=== PATIENT | female | born 1990 | race Caucasian/White ===

== ENCOUNTER 2018-01-04 08:56 | Emergency (ER) | payer OTHER, MEDICAID, SELFPAY ==
[2018-01-04] VITALS (10 sets, daily range): BP systolic 130–166; BP diastolic 60–99; PULSE 81–120; RESP 13–22; TEMP 36.6–37.4; O2SAT 97–100; BMI 20.9
--- NOTE | 2018-01-04 08:59 | ED.SEIZURE ---
HPI - Seizure General Chief Complaint: Seizure Stated Complaint: Seizure Time Seen by Provider: 01/04/18 08:59 Source: patient and family Mode of arrival: ambulatory Limitations: no limitations History of Present Illness HPI Narrative: 27-year-old female with a history of psoriasis, and no history of seizures presents with a witnessed seizure by her boyfriend lasting an estimated 2 min. He states that they were sleeping and he thought she was stretching but realized that she was convulsing. He notes there was convulsions of the upper and lower extremities and she was unresponsive during the episode. Her breathing was irregular and she appeared to be turning red. She did not lose continence of bowel or bladder. She did not bite her tongue. Her boyfriend rolled her on her side. After the episode she was out of it for approximately 5 min. Medics noted that she was postictal on arrival. She uses marijuana and had a beer last night. Denies any other drug use. No head trauma. Related Data Home Medications Medication Instructions Recorded Confirmed No Known Home Medications 01/04/18 01/04/18 Allergies Allergy/AdvReac Type Severity Reaction Status Date / Time No Known Drug Allergies Allergy Verified 01/04/18 09:12 Review of Systems Review of Systems All systems reviewed & are unremarkable except as noted in HPI and below Constitutional Denies chills, Denies fever(s), Denies lethargy and Denies weakness Eyes Denies change in vision, Denies eye discharge, Denies irritation and Denies loss of vision ENT Ears, Nose, Mouth, and Throat: Denies change in voice, Denies neck pain and Denies sore throat Cardiovascular Denies chest pain, Denies irregular heart rhythm, Denies lightheadedness, Denies palpitations, Denies dyspnea, Denies dyspnea on exertion and Denies orthopnea Respiratory Denies cough, Denies dyspnea, Denies dyspnea on exertion and Denies wheezing Gastrointestinal Gastrointestinal: Denies abdominal pain, Denies change in bowel habits, Denies diarrhea, Denies nausea and Denies vomiting Genitourinary Denies hematuria, Denies flank pain, Denies urinary incontinence and Denies urinary urgency Musculoskeletal Denies neck pain Integumentary/Breasts Denies pruritus, Denies erythema, Denies rash and Denies wounds Neurologic Reports confusion, Denies loss of vision, Reports seizure-like activity and Denies weakness Psychiatric Denies anxiety, Reports confusion, Denies depression, Denies homicidal ideation and Denies suicidal ideation Endocrine Denies palpitations Hematologic/Lymphatic Denies easy bruising Allergic/Immunologic Denies wheezing PFSH Family History Father Age: 54 PTSD (post-traumatic stress disorder) Grandmother Early onset Alzheimer's dementia without behavioral disturbance Type 2 diabetes mellitus with complication, unspecified agricultural loan 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 insulin use status Mother Age: 50 Essential hypertension Grandfather Cancer Type 2 diabetes mellitus with complication, unspecified shelter insulin use status Grandmother Adult idiopathic generalized osteoporosis Exam Initial Vital Signs Initial Vital Signs: Vital Signs Temperature 97.9 F 01/04/18 09:12 Pulse Rate 96 H 01/04/18 09:12 Respiratory Rate 16 01/04/18 09:12 Blood Pressure 166/99 H 01/04/18 09:12 Pulse Oximetry 100 01/04/18 09:12 Const General: cooperative and well developed Nutritional Appearance: well nourished Orientation: alert, awake, oriented x3 and not confused HENMT Head: normocephalic and atraumatic Ears: external ears normal and TM's normal bilaterally Nose: external nose normal and No nasal discharge Face and sinus: sinuses nontender, face symmetric, no sinus tenderness and No dry mucous membranes Mouth: oral mucosae normal and moist mucous membranes Teeth and gingiva: dentition normal Throat: tonsils normal and uvula midline Eyes General: appearance normal, both eyes and all related structures Eyelids: eyelids normal Conjunctivae: conjunctivae normal Sclera: sclerae normal Pupils: PERRL EOM: EOM intact bilaterally Neck Neck: normal visual inspection, trachea midline, No lymphadenopathy, No midline deformity and No JVD Lymphatic: No lymphedema Chest Chest: normal inspection of the chest Resp Effort & Inspection: normal respiratory effort, able to speak in complete sentences, no respiratory distress and no use of accessory muscles Auscultation: clear to auscultation bilaterally, no rales, no rhonchi and no wheezes Cardio Rate: regular rate Rhythm: regular rhythm Heart Sounds: no click, no gallops, no murmurs and no rubs Pulses: normal peripheral pulses GI Inspection: non-distended Palpation: soft, no hepatosplenomegaly, No guarding, No pulsatile mass and No tender Auscultation: normal bowel sounds Back/Spine/Pelvis Back: No CVA tenderness Cervical Spine: cervical ROM normal and No pain with cervical ROM Thoracic/Lumbar Spine: thoracic and lumbar spine normal to inspection Skin General: No jaundice and No petechiae Other: Diffuse psoriasis over bilateral arms Neuro General: alert, oriented x3, gait normal and no focal motor deficits Speech: speech normal Extrem General: full ROM, no clubbing, cyanosis or edema, no pedal edema and no calf tenderness Psych Appearance: well kempt Mental Status: mental status grossly normal Attitude: cooperative Thought Content: normal and suicidality Judgment: judgment good Course Orders Ordered: ED Orders 01/04/18 08:45 Complete Blood Count AUTO DIFF Stat Comprehensive Metabolic Panel Stat Ethanol (ETOH) Stat Magnesium Stat Prolactin Stat 01/04/18 09:17 CT head/brain wo con Stat 01/04/18 11:05 Rapid Drug Screen, Urine Stat Urinalysis Sreen (Dip Only) Stat Discontinued Medications Sodium Chloride (Normal Saline 0.9%) 1,000 mls @ 1,000 mls/hr IV BOLUS ONE Stop: 01/04/18 15:15 Last Infusion: 01/04/18 16:32 Dose: 0 mls/hr Admin: 01/04/18 14:17 Dose: 1,000 mls/hr Lorazepam (Ativan) 2 mg IV NOW ONE Stop: 01/04/18 12:13 Last Admin: 01/04/18 11:35 Dose: 2 mg Ondansetron HCl (Zofran) 4 mg IV NOW ONE Stop: 01/04/18 10:13 Last Admin: 01/04/18 10:13 Dose: 4 mg Reevaluation(s) Reevaluation #1: While in the ED I was called from another patient's room to come evaluate the patient. She was having another seizure which from the time I arrived in the room lasted approximately 2 min. It involved both her bilateral upper and lower extremities and involved extension rather than flexion. She was apneic during the event and became cyanotic which was unable to be monitored by pulse ox given her convulsions. She was given Ativan 2 mg IV just as her convulsions were beginning to let up. She was also foaming at the mouth and there is no incontinence noted. When pulse oximeter was placed she was not hypoxic. She had another long episode of being postictal and quite confused and had to be in soft restraints so as not to pull out her IV. I discussed her care with Neurology as documented below. Reevaluation #2: Ambulance arrival to take patient to [facility] as there is no bed available. Time: 17:19 Consultations Consultation #1: Discussed with Dr. Hoffman, [facility] neurology who recommends given her recurrent seizures that she should be admitted to observation, have MRI with and without contrast to look for seizure foci and that she have follow-up with an outpatient neurologist for EEG and other workup. He does not feel that she needs to start antiepileptics at this time, but if she had a 3rd seizure he would recommend Keppra 750 mg b.i.d.. I will discuss with hospitalist Time: 12:19 Consultation #2: Discussed with Dr. Slade who feels patient needs to be more appropriately admitted to a facility with Neurology. [facility] was paged after family requested transfer to [facility]. I spoke with Dr. Paco Little who accepts the admission pending bed availability. Time: 13:34 Vital Signs - 8 hr 01/04/18 11:33 01/04/18 12:04 01/04/18 12:30 Pulse Rate 81 104 H 103 H Respiratory Rate 15 16 19 Blood Pressure [Left Arm] 147/86 H 130/81 H 143/93 H Pulse Oximetry 100 98 97 01/04/18 13:05 01/04/18 14:10 01/04/18 15:40 Pulse Rate 100 H 95 H 117 H Respiratory Rate 18 17 20 Blood Pressure [Left Arm] 144/99 H 133/89 H 140/81 H Pulse Oximetry 97 99 99 01/04/18 16:38 01/04/18 17:13 Pulse Rate 118 H 120 H Respiratory Rate 13 22 Blood Pressure [Left Arm] 140/82 H 132/60 H Pulse Oximetry 97 98 MDM - Seizure Differential Diagnosis Likely intractable seizure disorder, focal seizure, generalized seizure, new onset seizure and epileptic seizure Lab Data Attestation: I reviewed the patient's lab results. Result diagrams: 01/04/18 08:45 01/04/18 08:45 Lab Results 01/04/18 01/04/18 01/04/18 Range/Units 08:45 08:45 11:05 WBC 7.5 (4.5-11.0) X10^3/uL RBC 4.16 (4.0-5.2) X10^6/uL Hgb 13.9 (12.0-16.0) g/dL Hct 40.9 (36-46) % MCV 98.1 (80-100) fL MCH 33.3 (26-34) PG MCHC 33.9 (30-36) % RDW 12.8 (11.6-14.8) % Plt Count 324 (150-400) X10^3/uL Neut % (Auto) 45.5 L (50-75) % Lymph % (Auto) 39.8 (25-40) % [place] % (Auto) 10.4 (3-14) % Eos % (Auto) 3.2 (2-4) % Baso % (Auto) 1.1 (0-2) % Neut # (Auto) 3400 (9468-8859) /uL Sodium 141 (137-145) mmol/L Potassium 3.9 (3.4-5.1) mmol/L Chloride 104 (98-107) mmol/L Carbon Dioxide 17 L (22-32) mmol/L BUN 17 (7-17) mg/dL Creatinine 0.80 (0.52-1.04) mg/dL Estimated GFR > 60.0 (>60) mL/min BUN/Creatinine Ratio 21.3 (6-22) Glucose 121 H (70-100) mg/dL Calcium 9.1 (8.4-10.2) mg/dL Magnesium 2.0 (1.6-2.3) mg/dL Total Bilirubin 0.4 (0.2-1.3) mg/dL AST 28 (14-36) IU/L ALT 18 (9-52) IU/L Alkaline Phosphatase 68 (38-126) U/L Total Protein 8.0 (6.3-8.2) g/dL Albumin 4.9 (3.5-5.0) g/dL Globulin 3.1 (1.7-4.1) g/dL Albumin/Globulin Ratio 1.6 (1.0-2.8) Prolactin 255.1 H (3.0-18.6) ng/mL Urine Color Urine Appearance Urine pH (4.5-8.0) Ur Specific [place] (1.000-1.035) Urine Protein (Negative) Urine Glucose (UA) (Normal) g/dL Urine Ketones (NEGATIVE) Urine Occult Blood (Negative) Urine Nitrate (Negative) Urine Bilirubin (NEGATIVE) Urine Urobilinogen (0.2) E.U./dL Ur Leukocyte Esterase (NEGATIVE) Urine Opiates Screen Negative (Negative) Ur Oxycodone Screen Negative (Negative) Urine Methadone Screen Negative (Negative) Ur Barbiturates Screen Negative (Negative) U Tricyclic Antidepress Negative (Negative) Ur Phencyclidine Scrn Negative (Negative) Ur Amphetamines Screen Negative (Negative) U Methamphetamines Scrn Negative (Negative) Ur MDMA Scrn (Ecstasy) Negative (Negative) U Benzodiazepines Scrn Negative (Negative) Urine Cocaine Screen Negative (Negative) U Marijuana (THC) Screen Positive H (Negative) Ethyl Alcohol < 10 mg/dL 01/04/18 Range/Units 11:05 WBC (4.5-11.0) X10^3/uL RBC (4.0-5.2) X10^6/uL Hgb (12.0-16.0) g/dL Hct (36-46) % MCV (80-100) fL MCH (26-34) PG MCHC (30-36) % RDW (11.6-14.8) % Plt Count (150-400) X10^3/uL Neut % (Auto) (50-75) % Lymph % (Auto) (25-40) % [place] % (Auto) (3-14) % Eos % (Auto) (2-4) % Baso % (Auto) (0-2) % Neut # (Auto) (1849-9204) /uL Sodium (137-145) mmol/L Potassium (3.4-5.1) mmol/L Chloride (98-107) mmol/L Carbon Dioxide (22-32) mmol/L BUN (7-17) mg/dL Creatinine (0.52-1.04) mg/dL Estimated GFR (>60) mL/min BUN/Creatinine Ratio (6-22) Glucose (70-100) mg/dL Calcium (8.4-10.2) mg/dL Magnesium (1.6-2.3) mg/dL Total Bilirubin (0.2-1.3) mg/dL AST (14-36) IU/L ALT (9-52) IU/L Alkaline Phosphatase (38-126) U/L Total Protein (6.3-8.2) g/dL Albumin (3.5-5.0) g/dL Globulin (1.7-4.1) g/dL Albumin/Globulin Ratio (1.0-2.8) Prolactin (3.0-18.6) ng/mL Urine Color Yellow Urine Appearance Cloudy Urine pH 8.0 (4.5-8.0) Ur Specific [place] 1.015 (1.000-1.035) Urine Protein Negative (Negative) Urine Glucose (UA) Negative (Normal) g/dL Urine Ketones Negative (NEGATIVE) Urine Occult Blood Negative (Negative) Urine Nitrate Negative (Negative) Urine Bilirubin Negative (NEGATIVE) Urine Urobilinogen 0.2 (0.2) E.U./dL Ur Leukocyte Esterase Negative (NEGATIVE) Urine Opiates Screen (Negative) Ur Oxycodone Screen (Negative) Urine Methadone Screen (Negative) Ur Barbiturates Screen (Negative) U Tricyclic Antidepress (Negative) Ur Phencyclidine Scrn (Negative) Ur Amphetamines Screen (Negative) U Methamphetamines Scrn (Negative) Ur MDMA Scrn (Ecstasy) (Negative) U Benzodiazepines Scrn (Negative) Urine Cocaine Screen (Negative) U Marijuana (THC) Screen (Negative) Ethyl Alcohol mg/dL Imaging Data CT scan - head: Radiologist's impression: PROCEDURE: CT HEAD/BRAIN WO CON INDICATIONS: new seizure TECHNIQUE: Noncontrast 4.5 mm thick angled axial sections acquired from the foramen magnum to the vertex, with coronal and sagittal reformats. For radiation dose reduction, the following was used: automated exposure control, adjustment of mA and/or kV according to patient size. COMPARISON: None. FINDINGS: Image quality: Excellent. CSF spaces: Basal cisterns are patent. No extra-axial fluid collections. Ventricles are normal in size and shape. Brain: No midline shift. No intracranial masses or hemorrhage. Ware-white matter interface is normal. Skull and face: Calvarium and visualized facial bones are intact, without suspicious lesions. Sinuses: Visualized sinuses and mastoids are clear. IMPRESSION: No acute intracranial disease process. Dictated by: Olivia Esqueda MD, PhD on 01/04/2018 at 9:35 Approved by: Olivia Esqueda MD, PhD on 01/04/2018 at 9:44 MDM Narrative Medical decision making narrative: 27-year-old female with a history of psoriasis presenting with new onset seizures with 2 episodes today. Prolactin is significantly elevated at 255. I discussed her care with Neurology who felt she should be admitted for observation with MRI and possible outpatient EEG. Given that our hospitalist was uncomfortable admitting the patient here without Neurology back up, [facility] was contacted who accepts the patient in transfer. She had no further seizures while in the emergency department waiting for ambulance. She received only Ativan 2 mg after her 2nd seizure. No antiepileptics were started. There was no evidence of drug use other than marijuana, no electrolyte imbalances, no head CT abnormalities, no , and no signs of infection. Discharge Plan Departure Patient Disposition: [facility] Clinical Impression: New onset seizure Interventions: ED Discharge Assessment Last Done: 01/04/18 16:53 Prescriptions: No Action No Known Home Medications RF: 0
--- NOTE | 2018-01-04 09:17 | DI.CT.S_ITS ---
PROCEDURE: CT HEAD/BRAIN WO CON INDICATIONS: new seizure TECHNIQUE: Noncontrast 4.5 mm thick angled axial sections acquired from the foramen magnum to the vertex, with coronal and sagittal reformats. For radiation dose reduction, the following was used: automated exposure control, adjustment of mA and/or kV according to patient size. COMPARISON: None. FINDINGS: Image quality: Excellent. CSF spaces: Basal cisterns are patent. No extra-axial fluid collections. Ventricles are normal in size and shape. Brain: No midline shift. No intracranial masses or hemorrhage. Ware-white matter interface is normal. Skull and face: Calvarium and visualized facial bones are intact, without suspicious lesions. Sinuses: Visualized sinuses and mastoids are clear. IMPRESSION: No acute intracranial disease process. Dictated by: Olivia Esqueda MD, PhD on 01/04/2018 at 9:35 Approved by: Olivia Esqueda MD, PhD on 01/04/2018 at 9:44
[2018-01-04 09:20] LABS: Add Manual Diff / Slide Review NO; Basophils Percent Auto 1.1 % (0-2); Eosinophils Percent Auto 3.2 % (2-4); Hematocrit 40.9 % (36-46); Hemoglobin 13.9 g/dL (12.0-16.0); Lymphocytes Percent Auto 39.8 % (25-40); Mean Corpuscular HGB Conc 33.9 % (30-36); Mean Corpuscular Hemoglobin 33.3 PG (26-34); Mean Corpuscular Volume 98.1 fL (80-100); Monocytes Percent Auto 10.4 % (3-14); Neutrophils Absolute Auto 3400 /uL (3000-5900); Neutrophils Percent Auto 45.5 % (50-75); Platelet Count 324 X10^3/uL (150-400); Red Blood Cell Count 4.16 X10^6/uL (4.0-5.2); Red Cell Distribution Width 12.8 % (11.6-14.8); White Blood Cell Count 7.5 X10^3/uL (4.5-11.0)
[2018-01-04 09:32] LABS: Alanine Aminotransferase 18 IU/L (9-52); Albumin 4.9 g/dL (3.5-5.0); Albumin Globulin Ratio 1.6 (1.0-2.8); Alkaline Phosphatase 68 U/L (38-126); Aspartate Aminotransferase 28 IU/L (14-36); BUN Creatinine Ratio 21.3 (6-22); Bilirubin Total 0.4 mg/dL (0.2-1.3); Blood Urea Nitrogen 17 mg/dL (7-17); Calcium 9.1 mg/dL (8.4-10.2); Carbon Dioxide 17 mmol/L (22-32); Chloride 104 mmol/L (98-107); Estimated Glomerular Filt Rate > 60.0 mL/min (>60); Ethanol (ETOH) < 10 mg/dL; Globulin 3.1 g/dL (1.7-4.1); Glucose 121 mg/dL (70-100); HEMOLYSIS 15 (0-50); Potassium 3.9 mmol/L (3.4-5.1); Sodium 141 mmol/L (137-145)
[2018-01-04 09:48] LABS: Prolactin 255.1 ng/mL (3.0-18.6)
[2018-01-04] MEDS: ONDANSETRON 4 MG/2 ML INJ IV (10:13)
[2018-01-04 11:19] LABS: Appearance Urine UA CLOUDY; Bilirubin Urine UA NEGATIVE (NEGATIVE); Color Urine UA YELLOW; Glucose Urine UA NEGATIVE (Normal); Ketones Urine UA NEGATIVE (NEGATIVE); Leukocyte Esterase Urine UA NEGATIVE (NEGATIVE); Nitrite Urine UA Negative (Negative); Occult Blood Urine UA NEGATIVE (Negative); Protein Urine UA NEGATIVE (Negative); Specific Gravity Urine UA 1.015 (1.000-1.035); Urobilinogen Urine UA 0.2 E.U./dL (0.2)
[2018-01-04 11:23] LABS: Urine Tetrahydrocannabinol Positive (Negative)
[2018-01-04 11:24] LABS: Urine Amphetamines Negative (Negative); Urine Barbiturates Negative (Negative); Urine Benzodiazepines Negative (Negative); Urine Cocaine Negative (Negative); Urine MDMA Negative (Negative); Urine Methadone Negative (Negative); Urine Methamphetamines Negative (Negative); Urine Morphine/Opi cutoff 2000 Negative (Negative); Urine Oxycodone Negative (Negative); Urine Phencyclidine Negative (Negative); Urine Tricyclic Antidepressant Negative (Negative)
[2018-01-04] MEDS: LORazepam 2 MG/ML SYRINGE IV (11:35)
[2018-01-04] MEDS: SODIUM CHLORIDE 0.9% 1,000 ML 1000 ML IV (14:17)
--- NOTE | 2018-01-04 18:33 | PC.NURSE ---
Patient left behind her shoes and I sent message to Aunt(Bree Jade) to parts picker or let pt's mother know
== END 2018-01-04 17:35 | disposition short-term general hospital (02) ==
PROVIDERS: Emergency Provider Emergency Medicine; PCP Psychiatry & Neurology Forensic Psychiatry
DX: R56.9 Unspecified convulsions (principal)
CPT/HCPCS: 70450; 80053; 80305; 80320; 81003; 81025; 83735; 84146; 85025; 93041; 96361; 96374; 96375; 99285; J2060; J2405

== ENCOUNTER → 2018-03-08 13:28 | Outpatient (CLI) | payer OTHER, MEDICAID, SELFPAY ==
--- NOTE | 2018-03-08 | DI.US.S_ITS ---
PROCEDURE: US PELVIC COMPLETE INDICATIONS: LEFT OVARIAN CYST TECHNIQUE: Real-time scanning was performed of the pelvic organs, with image documentation. Additional endovaginal scanning was necessary due to incomplete visualization of the adnexal and endometrial structures by transabdominal scanning. COMPARISON: None. FINDINGS: Transabdominal scanning: No pathologic free abdominal or pelvic fluid. Endovaginal scanning: Uterus: Uterus is normal in size at the 3.3 x 5.0 x 8.1 cm. The endometrium measures 9.0 mm in combined thickness. Ovaries: The right ovary measures 22 x 23 x 45 mm and contains a complex ruptured cyst that measures 18 x 20 x 21 mm. The left ovary appears normal measuring 21 x 29 x 33 mm. IMPRESSION: 1. Normal uterus and left ovary. 2. Right ovary contains a 2 cm ruptured cyst. Dictated by: Sy Wagoner M.D. on 03/08/2018 at 15:01 Approved by: Sy Wagoner M.D. on 03/08/2018 at 15:03
== END ==
PROVIDERS: PCP Psychiatry & Neurology Forensic Psychiatry; Visit Provider Nurse Practitioner
DX: N83.202 Unspecified ovarian cyst, left side (principal)
CPT/HCPCS: 76830; 76856

== ENCOUNTER 2018-08-16 14:46 | Emergency (ER) | payer OTHER, MEDICAID, SELFPAY ==
[2018-08-16] VITALS (28 sets, daily range): BP systolic 121–197; BP diastolic 86–118; PULSE 91–132; RESP 11–30; TEMP 36.7; O2SAT 95–100
--- NOTE | 2018-08-16 14:58 | ED.SEIZURE ---
HPI - Seizure General Chief Complaint: Seizure Stated Complaint: 6 MONTHS PREG/SEIZURE Time Seen by Provider: 08/16/18 14:54 Source: patient Mode of arrival: ambulatory Limitations: no limitations History of Present Illness HPI Narrative: Patient is a at approximately 25 weeks EGA here for evaluation of a seizure this morning. Patient had a 1st seizure the middle of last year. First 1 was outside of the hospital 2nd 1 was in the emergency department. She was transferred to [facility] where she underwent tests . She states she was not started on any medications. Did not have any symptoms until today. She also became during this time. Patient states that she has had high blood pressure in the past has not on any medications now. Today she stated that she started to feel funny and then had a generalized tonic-clonic seizure in vehicle. Witnessed by her . Resolved prior to coming here to the emergency department. Was somewhat confused in triage per nursing report. States she does have some nausea. No loss of fluid. No vaginal bleeding. No cramping. Did not hit her head. Related Data Home Medications Medication Instructions Recorded Confirmed PNV cmb#95-ferrous fumarate-FA 1 tab PO DAILY 08/16/18 08/16/18 [] Allergies Allergy/AdvReac Type Severity Reaction Status Date / Time No Known Drug Allergies Allergy Verified 01/04/18 09:12 Review of Systems Constitutional Denies fever(s), Denies headache(s) and Reports weakness Eyes Denies change in vision ENT Ears, Nose, Mouth, and Throat: Denies vertigo, Denies dizziness, Denies headache(s) and Denies disequilibrium Cardiovascular Denies chest pain and Denies dyspnea Respiratory Denies dyspnea Gastrointestinal Gastrointestinal: Denies abdominal pain, Reports nausea and Denies vomiting Genitourinary Denies dysuria, Denies vaginal discharge and Denies vaginal dryness Musculoskeletal Denies myalgias and Denies arthralgias Integumentary/Breasts Denies rash Neurologic Denies vertigo, Denies dizziness, Denies headache(s), Reports memory loss, Reports seizure-like activity, Denies disequilibrium and Reports weakness Psychiatric Reports memory loss Hematologic/Lymphatic Comments: Not on blood thinners Allergic/Immunologic Denies seasonal rhinorrhea PFSH Medical History Hypertension (Acute) Seizures (Acute) Surgical History No pertinent past surgical history (Acute) Family History Father Age: 54 PTSD (post-traumatic stress disorder) Grandmother Early onset Alzheimer's dementia without behavioral disturbance Type 2 diabetes mellitus with complication, unspecified medical terminologist insulin use status Mother Age: 50 Essential hypertension Grandfather Cancer Type 2 diabetes mellitus with complication, unspecified medical terminologist insulin use status Grandmother Adult idiopathic generalized osteoporosis Social History marital status: lives independently: Yes Exam Initial Vital Signs Initial Vital Signs: Vital Signs Temperature 98.0 F 08/16/18 14:50 Const General: cooperative, healthy appearing, comfortable, well developed, well groomed and No acute distress Resp Effort & Inspection: normal respiratory effort Cardio Rate: tachycardic Rhythm: regular rhythm GI Other: Gravid abdomen Skin General: no rashes or lesions noted Neuro General: alert, awake and oriented x3 Cognition: normal cognition Speech: speech normal Sensory Exam: no sensory deficits noted Extrem General: normal to inspection and capillary refill normal Psych Appearance: grossly normal and well kempt Course Orders Ordered: ED Orders 08/16/18 14:55 Complete Blood Count AUTO DIFF Stat Comprehensive Metabolic Panel Stat Ethanol (ETOH) Stat Lactate Dehydrogenase Stat Lipase Stat Prolactin Stat 08/16/18 15:25 Urine Drug Screen, Rapid Stat Urine Microscopic Stat 08/16/18 15:40 US OB limited Stat 08/16/18 18:09 Magnesium Stat Phosphorous Stat Magnesium Sulfate (Magnesium Sulfate) 20 gm in 500 mls @ 50 mls/hr IV CONT ROCIO Discontinued Medications Sodium Chloride (Normal Saline 0.9%) 1,000 mls @ 1,000 mls/hr IV BOLUS ONE Stop: 08/16/18 16:34 Last Infusion: 08/16/18 16:49 Dose: 0 mls/hr Admin: 08/16/18 15:37 Dose: 1,000 mls/hr Magnesium Sulfate 6 gm/ (Dextrose) 112 mls @ 112 mls/hr IV NOW ONE Stop: 08/16/18 18:10 Labetalol HCl (Trandate) 5 mg IV NOW ONE Stop: 08/16/18 15:16 Last Admin: 08/16/18 15:28 Dose: 5 mg Labetalol HCl (Trandate) 5 mg IV NOW ONE Stop: 08/16/18 17:07 Last Admin: 08/16/18 17:16 Dose: 5 mg Labetalol HCl (Trandate) 5 mg IV NOW ONE Stop: 08/16/18 17:14 Lorazepam (Ativan) 2 mg IV NOW ONE Stop: 08/16/18 17:02 Last Admin: 08/16/18 17:02 Dose: 2 mg Ondansetron HCl (Zofran) 4 mg IV NOW ONE Stop: 08/16/18 15:35 Last Admin: 08/16/18 15:37 Dose: 4 mg Vital Signs - 8 hr 08/16/18 14:50 08/16/18 14:59 08/16/18 15:05 Temperature 98.0 F Pulse Rate 129 H 132 H Respiratory Rate 16 14 Blood Pressure Blood Pressure [Left Arm] 177/117 H 171/106 H Pulse Oximetry 99 98 08/16/18 15:10 08/16/18 15:28 08/16/18 15:43 Temperature Pulse Rate 131 H 125 H 104 H Respiratory Rate 16 11 L Blood Pressure 160/118 H Blood Pressure [Left Arm] 171/106 H 155/108 H Pulse Oximetry 97 97 08/16/18 16:03 08/16/18 16:10 08/16/18 16:35 Temperature Pulse Rate 91 H 102 H Respiratory Rate 19 Blood Pressure 135/99 H Blood Pressure [Left Arm] 151/95 H 160/100 H Pulse Oximetry 100 08/16/18 16:49 08/16/18 17:03 08/16/18 17:10 Temperature Pulse Rate 92 H 120 H 112 H Respiratory Rate 12 26 H 19 Blood Pressure Blood Pressure [Left Arm] 156/92 H 178/98 H 152/88 H Pulse Oximetry 100 98 95 08/16/18 17:16 08/16/18 17:20 08/16/18 17:30 Temperature Pulse Rate 108 H 113 H 115 H Respiratory Rate 18 20 Blood Pressure 156/96 H Blood Pressure [Left Arm] 137/98 H 121/86 Pulse Oximetry 99 99 MDM - Seizure Medical Records Attestation: I reviewed the patient's medical records. Lab Data Attestation: I reviewed the patient's lab results. Result diagrams: 08/16/18 14:55 08/16/18 14:55 Lab Results 08/16/18 08/16/18 08/16/18 Range/Units 14:55 14:55 14:55 WBC 16.4 H (4.5-11.0) X10^3/uL RBC 3.77 L (4.0-5.2) X10^6/uL Hgb 12.7 (12.0-16.0) g/dL Hct 36.8 (36-46) % MCV 97.5 (80-100) fL MCH 33.6 (26-34) PG MCHC 34.5 (30-36) % RDW 13.3 (11.6-14.8) % Plt Count 331 (150-400) X10^3/uL Neut % (Auto) 73.1 (50-75) % Lymph % (Auto) 17.8 L (25-40) % [place] % (Auto) 7.3 (3-14) % Eos % (Auto) 1.2 L (2-4) % Baso % (Auto) 0.6 (0-2) % Neut # (Auto) 70752 H (7553-4294) /uL Lymph # (Auto) 2900 (6823-8889) /uL [place] # (Auto) 1200 H (0-900) /uL Eos # (Auto) 200 (0-450) /uL Baso # (Auto) 100 (0-100) /uL Sodium 136 L (137-145) mmol/L Potassium 3.5 (3.4-5.1) mmol/L Chloride 101 (98-107) mmol/L Carbon Dioxide 17 L (22-32) mmol/L BUN 9 (7-17) mg/dL Creatinine 0.50 L (0.52-1.04) mg/dL Estimated GFR > 60.0 (>60) mL/min BUN/Creatinine Ratio 18.0 (6-22) Glucose 90 (70-100) mg/dL Calcium 9.0 (8.4-10.2) mg/dL Total Bilirubin < 0.1 L (0.2-1.3) mg/dL AST 34 (14-36) IU/L ALT 36 (9-52) IU/L Alkaline Phosphatase 65 (38-126) U/L Lactate Dehydrogenase 391 (313-618) U/L Total Protein 7.7 (6.3-8.2) g/dL Albumin 4.6 (3.5-5.0) g/dL Globulin 3.1 (1.7-4.1) g/dL Albumin/Globulin Ratio 1.5 (1.0-2.8) Lipase 72 (23-300) U/L Prolactin 308.8 H (3.0-18.6) ng/mL Urine RBC (0-5/HPF) Urine WBC (0-5/HPF) Ur Squamous Epith Cells Amorphous Sediment Urine Bacteria (None) Ur Culture Indicated? Urine Opiates Screen (Negative) Ur Oxycodone Screen (Negative) Urine Methadone Screen (Negative) Ur Barbiturates Screen (Negative) U Tricyclic Antidepress (Negative) Ur Phencyclidine Scrn (Negative) Ur Amphetamines Screen (Negative) U Methamphetamines Scrn (Negative) Ur MDMA Scrn (Ecstasy) (Negative) U Benzodiazepines Scrn (Negative) Urine Cocaine Screen (Negative) U Marijuana (THC) Screen (Negative) Ethyl Alcohol < 10 mg/dL 08/16/18 08/16/18 Range/Units 15:25 15:25 WBC (4.5-11.0) X10^3/uL RBC (4.0-5.2) X10^6/uL Hgb (12.0-16.0) g/dL Hct (36-46) % MCV (80-100) fL MCH (26-34) PG MCHC (30-36) % RDW (11.6-14.8) % Plt Count (150-400) X10^3/uL Neut % (Auto) (50-75) % Lymph % (Auto) (25-40) % [place] % (Auto) (3-14) % Eos % (Auto) (2-4) % Baso % (Auto) (0-2) % Neut # (Auto) (9820-8376) /uL Lymph # (Auto) (6177-1795) /uL [place] # (Auto) (0-900) /uL Eos # (Auto) (0-450) /uL Baso # (Auto) (0-100) /uL Sodium (137-145) mmol/L Potassium (3.4-5.1) mmol/L Chloride (98-107) mmol/L Carbon Dioxide (22-32) mmol/L BUN (7-17) mg/dL Creatinine (0.52-1.04) mg/dL Estimated GFR (>60) mL/min BUN/Creatinine Ratio (6-22) Glucose (70-100) mg/dL Calcium (8.4-10.2) mg/dL Total Bilirubin (0.2-1.3) mg/dL AST (14-36) IU/L ALT (9-52) IU/L Alkaline Phosphatase (38-126) U/L Lactate Dehydrogenase (313-618) U/L Total Protein (6.3-8.2) g/dL Albumin (3.5-5.0) g/dL Globulin (1.7-4.1) g/dL Albumin/Globulin Ratio (1.0-2.8) Lipase (23-300) U/L Prolactin (3.0-18.6) ng/mL Urine RBC None seen (0-5/HPF) Urine WBC 0-1/hpf (0-5/HPF) Ur Squamous Epith Cells 0-1 /hpf Amorphous Sediment 1+ Urine Bacteria Occasional (0-1) (None) Ur Culture Indicated? Cult not indicated Urine Opiates Screen Negative (Negative) Ur Oxycodone Screen Negative (Negative) Urine Methadone Screen Negative (Negative) Ur Barbiturates Screen Negative (Negative) U Tricyclic Antidepress Negative (Negative) Ur Phencyclidine Scrn Negative (Negative) Ur Amphetamines Screen Negative (Negative) U Methamphetamines Scrn Negative (Negative) Ur MDMA Scrn (Ecstasy) Negative (Negative) U Benzodiazepines Scrn Negative (Negative) Urine Cocaine Screen Negative (Negative) U Marijuana (THC) Screen Positive H (Negative) Ethyl Alcohol mg/dL Urine Dip Bedside Urine Glucose Negative Bedside Urine Bilirubin - Negative Bedside Urine Ketone +/- 5 Urine Specific [place] 1.015 Bedside Urine Occult Blood - Negative Bedside Urine pH 7.0 Bedside Urine Protein +/- 15 Bedside Urine Urobilinogen - Negative Bedside Urine Nitrite - Negative Bedside Urine Leukocytes - Negative Esterase Imaging Data US - abdomen: Radiologist's impression: [place] [address] Ultrasound Report Signed Patient: Becky Hamilton LMR#: [id number] : 1990Acct:[id number] Age/Sex: 28 / FDate of Service: 08/16/18 Loc: ED Accession Number: [id number] Procedure: US OB limited Ordering Provider: Iftikhar Brumfield D.O. PROCEDURE: US OB LIMITED INDICATIONS: 25 weeks-linda with seizure OUTSIDE/PRIOR DATING DATA: Last menstrual period (LMP): Not available. LMP-based estimated date of delivery (MARCELINO): Not available. First dating scan (date and location): 04/08/2018. Estimated date of delivery (MARCELINO) from first dating scan: 11/22/2018. TECHNIQUE: Real-time scanning was performed of the fetus, with image documentation and biometric measurements. Endovaginal scanning: Not performed COMPARISON: [facility], US, US OB > 14 WEEKS COMPLETE ANATOMY, 07/08/2018, 7:30. [facility] Ultrasound, US, US OB < 14 WEEKS + OB TRANSVAG, 04/08/2018, 15:33. [facility], US, US PELVIC COMPLETE, 03/08/2018, 13:47. FINDINGS: General: A single living intrauterine gestation is present. Presentation: Transverse head to the left. Placenta: Placental position is anterior, without previa. Amniotic fluid index: 17.0 cm, normal range is 5-24 cm. heart rate: 155 beats per minute. Maternal cervical canal: 4.0 cm long. Normal lower limit is 2.5 cm. biometrics: Biparietal diameter: 27 weeks 3 days Head circumference: 26 weeks 6 days Abdominal circumference: 27 weeks 1 day Femur length: 26 weeks 1 day Estimated gestational age from initial scan: 26 weeks 0 day. Composite gestational age from present scan: 26 weeks 6 days Estimated weight and percentile: 980 g; 72% Measurement variability for biometric dating: +/- 7 days from 14 weeks to 15 weeks 6 days gestation, +/- 10 days from 16 weeks to 21 weeks 6 days gestation, +/- 2 weeks from 22 weeks to 27 weeks 6 days gestation, +/- 3 weeks for 28 weeks gestation or later. weight reference: 4500 g or EFW >90/95% is considered macrosomia or large for gestational age. EFW <10% is small for gestational age. EFW 5% or less is considered intra-uterine growth restriction. Other: Not applicable. IMPRESSION: A 1. A single living intrauterine gestation with the estimated gestational age of 26 weeks 0 day based on initial ultrasound. There is appropriate interval growth. 2. Normal DANI. Dictated by: Divya Barnett M.D. on 08/16/2018 at 17:03 MDM Narrative Medical decision making narrative: MRI result reviewed from 01/05/2018. Normal brain MRI. No MRI evidence of acute intracranial abnormality. Specifically, no evidence of acute or subacute infarct, acute intracranial hemorrhage, mass, midline shift, or hydrocephalus. No abnormal enhancement. No white matter lesions. Unable to see the specific EEG results however discharge in summary from [facility] dated 01/07/2018 refers to an EEG that was reported as mildly abnormal with diffuse slowing specifically in the left temporal region, but no epileptiform activity. Patient was initially given 5 mg of labetalol IV which brought her systolic blood pressure down to the 130s. Ultrasound shows single intrauterine at appropriate weeks. Discussed the case with Dr. Villatoro who recommended that the patient be transferred to a facility has a maternal medicine specialist. While was on the phone with Ob was called to the patient's room for another episode of seizure-like activity. Patient never became hypoxic but her lips did turn blue. Patient was given 2 mg of Ativan however seizure activity. Prior to administration of this medication. Entire event lasting less than 2 min. Patient did have what I feel like is a postictal state. The patient was given an additional 5 mg of labetalol for hypertension. Discussed the case with Dr. Urban at [facility] with maternal medicine. Her some question about whether not this is an eclamptic situation given her gestational age and also her labs. Is also concerned that this may be hypertension in associated with an underlying seizure disorder. He recommended treating this like an eclamptic seizure. He recommended 6 g of magnesium as a bolus then 2 g an hour afterwards. I also placed a Moyer. Before magnesium was started I did draw a magnesium and phosphorus level. These were pending. Patient with 2+ reflexes. Normal mental exam. Patient does not have any signs of meningitis. I feel that an infection is less likely. I do feel that the leukocytosis is demargination secondary to the seizures. Patient is currently stable for transport. Discussed the transfer with the patient and family who were at bedside. They all expressed understanding and agreement. Critical Care Time Critical Care Time: Yes Total Critical Care Time: 40 Attestation: The high probability of a clinically significant, sudden or life threatening deterioration of the neurologic and obstetric system(s) required my full and direct attention, intervention and personal management. The aggregate critical care time was 40minutes. This time is in addition to time spent performing reported procedures but includes the following: [] Data Review and interpretation [] Patient assessment and monitoring of vital signs [] Documentation [] Medication orders and management Coordination of care Discharge Plan Departure Patient Disposition: Xfer [facility] Clinical Impression: , Seizure Prescriptions: No Action PNV cmb#95-ferrous fumarate-FA [] 28 mg iron- 800 mcg Tablet 1 tab PO DAILY RF: 0
[2018-08-16 15:10] LABS: Add Manual Diff / Slide Review NO; Basophils Absolute Auto 100 /uL (0-100); Basophils Percent Auto 0.6 % (0-2); Eosinophils Absolute Auto 200 /uL (0-450); Eosinophils Percent Auto 1.2 % (2-4); Hematocrit 36.8 % (36-46); Hemoglobin 12.7 g/dL (12.0-16.0); Lymphocytes Absolute Auto 2900 /uL (1100-4500); Lymphocytes Percent Auto 17.8 % (25-40); Mean Corpuscular HGB Conc 34.5 % (30-36); Mean Corpuscular Hemoglobin 33.6 PG (26-34); Mean Corpuscular Volume 97.5 fL (80-100); Monocytes Absolute Auto 1200 /uL (0-900); Monocytes Percent Auto 7.3 % (3-14); Neutrophils Absolute Auto 12000 /uL (1500-7000); Neutrophils Percent Auto 73.1 % (50-75); Platelet Count 331 X10^3/uL (150-400); Red Blood Cell Count 3.77 X10^6/uL (4.0-5.2); Red Cell Distribution Width 13.3 % (11.6-14.8); White Blood Cell Count 16.4 X10^3/uL (4.5-11.0)
[2018-08-16 15:27] LABS: Alanine Aminotransferase 36 IU/L (9-52); Albumin 4.6 g/dL (3.5-5.0); Albumin Globulin Ratio 1.5 (1.0-2.8); Alkaline Phosphatase 65 U/L (38-126); Aspartate Aminotransferase 34 IU/L (14-36); Blood Urea Nitrogen 9 mg/dL (7-17); Carbon Dioxide 17 mmol/L (22-32); Chloride 101 mmol/L (98-107); Estimated Glomerular Filt Rate > 60.0 mL/min (>60); Ethanol (ETOH) < 10 mg/dL; Globulin 3.1 g/dL (1.7-4.1); Glucose 90 mg/dL (70-100); HEMOLYSIS < 15 (0-50); Lipase 72 U/L (23-300); Potassium 3.5 mmol/L (3.4-5.1); Sodium 136 mmol/L (137-145); Total Protein 7.7 g/dL (6.3-8.2)
[2018-08-16] MEDS: LABETALOL 20 MG/4 ML SYRINGE 5 MG IV ×2 (15:28→17:16)
[2018-08-16] MEDS: ONDANSETRON 4 MG/2 ML INJ IV (15:37)
[2018-08-16] MEDS: SODIUM CHLORIDE 0.9% 1,000 ML 1000 ML IV (15:37)
[2018-08-16 15:40] LABS: Bilirubin Total < 0.1 mg/dL (0.2-1.3)
--- NOTE | 2018-08-16 15:40 | DI.US.S_ITS ---
PROCEDURE: US OB LIMITED INDICATIONS: 25 weeks-linda with seizure OUTSIDE/PRIOR DATING DATA: Last menstrual period (LMP): Not available. LMP-based estimated date of delivery (MARCELINO): Not available. First dating scan (date and location): 04/08/2018. Estimated date of delivery (MARCELINO) from first dating scan: 11/22/2018. TECHNIQUE: Real-time scanning was performed of the fetus, with image documentation and biometric measurements. Endovaginal scanning: Not performed COMPARISON: [facility], US, US OB > 14 WEEKS COMPLETE ANATOMY, 07/08/2018, 7:30. [facility] Ultrasound, US, US OB < 14 WEEKS + OB TRANSVAG, 04/08/2018, 15:33. [facility], US, US PELVIC COMPLETE, 03/08/2018, 13:47. FINDINGS: General: A single living intrauterine gestation is present. Presentation: Transverse head to the left. Placenta: Placental position is anterior, without previa. Amniotic fluid index: 17.0 cm, normal range is 5-24 cm. heart rate: 155 beats per minute. Maternal cervical canal: 4.0 cm long. Normal lower limit is 2.5 cm. biometrics: Biparietal diameter: 27 weeks 3 days Head circumference: 26 weeks 6 days Abdominal circumference: 27 weeks 1 day Femur length: 26 weeks 1 day Estimated gestational age from initial scan: 26 weeks 0 day. Composite gestational age from present scan: 26 weeks 6 days Estimated weight and percentile: 980 g; 72% Measurement variability for biometric dating: +/- 7 days from 14 weeks to 15 weeks 6 days gestation, +/- 10 days from 16 weeks to 21 weeks 6 days gestation, +/- 2 weeks from 22 weeks to 27 weeks 6 days gestation, +/- 3 weeks for 28 weeks gestation or later. weight reference: 4500 g or EFW >90/95% is considered macrosomia or large for gestational age. EFW <10% is small for gestational age. EFW 5% or less is considered intra-uterine growth restriction. Other: Not applicable. IMPRESSION: A 1. A single living intrauterine gestation with the estimated gestational age of 26 weeks 0 day based on initial ultrasound. There is appropriate interval growth. 2. Normal DANI. Dictated by: Divya Barnett M.D. on 08/16/2018 at 17:03 Approved by: Divya Barnett M.D. on 08/16/2018 at 17:07
[2018-08-16 15:43] LABS: Prolactin 308.8 ng/mL (3.0-18.6)
[2018-08-16 15:43] LABS: Urine Amphetamines Negative (Negative); Urine Barbiturates Negative (Negative); Urine Benzodiazepines Negative (Negative); Urine Cocaine Negative (Negative); Urine MDMA Negative (Negative); Urine Methadone Negative (Negative); Urine Methamphetamines Negative (Negative); Urine Morphine/Opi cutoff 2000 Negative (Negative); Urine Oxycodone Negative (Negative); Urine Phencyclidine Negative (Negative); Urine Tetrahydrocannabinol Positive (Negative); Urine Tricyclic Antidepressant Negative (Negative)
[2018-08-16 15:49] LABS: RBC Urine None Seen (0-5/HPF)
[2018-08-16 15:59] LABS: Amorphous Sediment Urine 1+; Bacteria Urine Occasional (0-1); Squamous Epithelial Cell Urine 0-1 /HPF; WBC Urine 0-1/HPF (0-5/HPF)
[2018-08-16 16:00] LABS: Culture Indicated Urine Cult Not Indicated
[2018-08-16 16:04] LABS: Lactate Dehydrogenase 391 U/L (313-618)
--- NOTE | 2018-08-16 16:11 | PC.NURSE ---
1530 - While administering ordered dose of labetolol, patient became nauseated and diaphoretic and vomited a copious amount of emesis. Provider was notified and a second IV administered by second RN with IV fluid bolus and IV Zofran. Patient feeling much better. L&D nurse in room to reposition heart monitor. Patient is tilted to her left side and seizure pads are placed on her stretcher. Family at bedside, call light within reach, and heart tones are registering at 140s-150s.
[2018-08-16] MEDS: LORazepam 2 MG/ML SYRINGE IV (17:02)
--- NOTE | 2018-08-16 17:25 | PC.NURSE ---
1700- Patient sat up, became pale and began to have tonic clonic movements for approx 2 min. Provider at bedside. Head turned, airway repositioned with jaw thrust and suctioned. 2mg Ativan given IV by second RN during seizure. NRB at 15L placed after seizing stopped. heart tones at 128bpm after seizure. Per boyfriend, patient stated she was going to have another seizure before she lost consciousness. Pt was post ictal for approx 20 min after seizure. Now awake and oriented, but still drowsy. No injuries noted, except for small amount of bleeding from the tongue.
[2018-08-16 18:36] LABS: Phosphorous 4.5 mg/dL (2.5-4.5)
[2018-08-16] MEDS: WATER IV (18:50)
[2018-08-16] MEDS: MAGNESIUM SULFATE IV (18:50)
[2018-08-16] MEDS: DEXTROSE 5% IV (18:50)
--- NOTE | 2018-08-16 19:01 | PC.NURSE ---
Magnesium drip started, heart rate 142, patient's heart rate 116, continuous cardiac monitoring in place. Patient awake and alert.
--- NOTE | 2018-08-16 19:26 | PC.NURSE ---
Patient not tolerating urinary catheter. States she wants it removed so she can pee. Placed some sterile lidocaine at the urethral opening for 15 min. Patient still requesting it be removed. Removed it per her request. Continuing to monitor urinary output. Denies any chest pain, headache, or any other symptoms at this time. States feeling much better after catheter removed.
[2018-08-16] MEDS: MAGNESIUM SULFATE 20 GM/500 ML IV.SOLN IV (19:52)
--- NOTE | 2018-08-16 20:08 | PC.NURSE ---
Loading dose of magnesium complete. Patient on maintenance dose now. DTR's intact, patient is awake, alert and oriented.
[2018-08-16] MEDS: LABETALOL 20 MG/4 ML SYRINGE 10 MG IV (21:41)
[2018-08-16] MEDS: ACETAMINOPHEN 325 MG TABLET 975 MG PO (21:49)
--- NOTE | 2018-08-16 21:57 | PC.NURSE ---
Patient c/o headache, provider notified. Tylenol given.
== END 2018-08-16 22:00 | disposition short-term general hospital (02) ==
PROVIDERS: Emergency Provider Emergency Medicine; PCP Psychiatry & Neurology Forensic Psychiatry
DX: O99.352 Diseases of the nervous system complicating pregnancy, second trimester (principal); G40.909 Epilepsy, unspecified, not intractable, without status epilepticus
CPT/HCPCS: 36591; 51701; 76815; 80053; 80305; 80320; 81003; 81015; 83615; 83690; 83735; 84100; 84146; 85025; 93041; 96361; 96365; 96375; 96376; 99285; 99291; J2060; J2405; J3475

== ENCOUNTER → 2018-09-02 10:52 | Outpatient (CLI) | payer OTHER, MEDICAID, SELFPAY ==
[2018-09-02 12:16] LABS: Hematocrit 34.6 % (36-46)
[2018-09-02 12:27] LABS: GTT (PREG) 1 Hour PP 50gm Dose 83 mg/dL (76-139)
== END ==
PROVIDERS: PCP Psychiatry & Neurology Forensic Psychiatry; Visit Provider Obstetrics & Gynecology
DX: Z34.91 Encounter for supervision of normal pregnancy, unspecified, first trimester (principal)
CPT/HCPCS: 82950; 85014; 85018; 86787

== ENCOUNTER → 2018-09-21 12:23 | Outpatient (CLI) | payer OTHER, MEDICAID, SELFPAY ==
[2018-09-21 17:38] LABS: Urine N gonorrhoeae NOT DETECTED
[2018-09-21 17:44] LABS: Urine Chlamydia NOT DETECTED
== END ==
PROVIDERS: PCP Psychiatry & Neurology Forensic Psychiatry; Visit Provider Obstetrics & Gynecology
DX: Z34.03 Encounter for supervision of normal first pregnancy, third trimester (principal)
CPT/HCPCS: 87491; 87591

== ENCOUNTER 2018-09-21 12:52 | Outpatient (CLI) | payer OTHER, MEDICAID, SELFPAY ==
--- NOTE | 2018-09-21 13:27 | PM.OBTRLD ---
Visit Information Visit Information Date of evaluation: 09/21/18 Primary OB Provider: Francine Villatoro On-call OB Provider: Zee Posey Reason for Evaluation: Yes non-stress test non-stress test reason: hypertension/pre-eclampsia Vital Signs Vital Signs: Initial blood pressure 168/118, subsequent on her left side 153/103, 156/85, last blood pressure 141/81 PFSH Medical History Hypertension (Acute) Seizures (Acute) Surgical History No pertinent past surgical history (Acute) Family History Father Age: 54 PTSD (post-traumatic stress disorder) Grandmother Early onset Alzheimer's dementia without behavioral disturbance Type 2 diabetes mellitus with complication, unspecified termite inspector insulin use status Mother Age: 50 Essential hypertension Grandfather Cancer Type 2 diabetes mellitus with complication, unspecified termite inspector insulin use status Grandmother Adult idiopathic generalized osteoporosis Social History marital status: lives independently: Yes Smoking Status: Former smoker Family History Father Age: 54 PTSD (post-traumatic stress disorder) Grandmother Early onset Alzheimer's dementia without behavioral disturbance Type 2 diabetes mellitus with complication, unspecified termite inspector insulin use status Mother Age: 50 Essential hypertension Grandfather Cancer Type 2 diabetes mellitus with complication, unspecified chcf insulin use status Grandmother Adult idiopathic generalized osteoporosis Social History marital status: lives independently: Yes Smoking Status: Former smoker Evaluation Evaluation Baseline heart rate: 135 Variability: Moderate (11-25) monitor accelerations: Present monitor decelerations: Absent Diagnosis, Plan/Disposition Final Diagnosis (1) Hypertension affecting in third trimester: Current Visit: Yes Status: Acute (2) 33 weeks gestation of : Current Visit: Yes Status: Acute Plan/Disposition Plan: Patient was discharged home to continue bedrest taking her p.o. labetalol and follow up at her routine OB appointment OB Disposition: home
--- NOTE | 2018-09-21 13:30 | P.TNLD_ITS ---
Visit Information Visit Information Date of evaluation: 09/21/18 Primary OB Provider: Francine Villatoro On-call OB Provider: Zee Posey Reason for Evaluation: Yes non-stress test non-stress test reason: hypertension/pre-eclampsia Vital Signs Vital Signs: Initial blood pressure 168/118, subsequent on her left side 153/103, 156/85, last blood pressure 141/81 PFSH Medical History Hypertension (Acute) Seizures (Acute) Surgical History No pertinent past surgical history (Acute) Family History Father Age: 54 PTSD (post-traumatic stress disorder) Grandmother Early onset Alzheimer's dementia without behavioral disturbance Type 2 diabetes mellitus with complication, unspecified 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 Mother Age: 50 Essential hypertension Grandfather Cancer Type 2 diabetes mellitus with complication, unspecified 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 Grandmother Adult idiopathic generalized osteoporosis Social History marital status: lives independently: Yes Smoking Status: Former smoker Family History Father Age: 54 PTSD (post-traumatic stress disorder) Grandmother Early onset Alzheimer's dementia without behavioral disturbance Type 2 diabetes mellitus with complication, unspecified 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 Mother Age: 50 Essential hypertension Grandfather Cancer Type 2 diabetes mellitus with complication, unspecified longterm insulin use status Grandmother Adult idiopathic generalized osteoporosis Social History marital status: lives independently: Yes Smoking Status: Former smoker Evaluation Evaluation Baseline heart rate: 135 Variability: Moderate (11-25) monitor accelerations: Present monitor decelerations: Absent Diagnosis, Plan/Disposition Final Diagnosis (1) Hypertension affecting in third trimester: Current Visit: Yes Status: Acute (2) 33 weeks gestation of : Current Visit: Yes Status: Acute Plan/Disposition Plan: Patient was discharged home to continue bedrest taking her p.o. labetalol and follow up at her routine OB appointment OB Disposition: home
== END 2018-09-21 13:33 | disposition home or self-care (01) ==
LOC: LABOR 12:59 → OB 09-23 10:54
PROVIDERS: PCP Psychiatry & Neurology Forensic Psychiatry; Visit Provider Obstetrics & Gynecology
DX: O16.3 Unspecified maternal hypertension, third trimester (principal); Z3A.33 33 weeks gestation of pregnancy
CPT/HCPCS: 59025; 87491; 87591; G0378; G0379

== ENCOUNTER 2018-09-27 15:41 | Outpatient (CLI) | payer OTHER, MEDICAID, SELFPAY | END 2018-09-27 16:15 | disposition home or self-care (01) | LOC: LABOR 15:55 → OB 09-29 10:33 | PROVIDERS: PCP Psychiatry & Neurology Forensic Psychiatry; Visit Provider Obstetrics & Gynecology | DX: O13.3 Gestational [pregnancy-induced] hypertension without significant proteinuria, third trimester (principal); Z3A.33 33 weeks gestation of pregnancy | CPT/HCPCS: 59025; G0378; G0379 ==

== ENCOUNTER 2018-10-04 10:39 | Outpatient (CLI) | payer OTHER, MEDICAID, SELFPAY | END 2018-10-04 11:15 | disposition home or self-care (01) | LOC: LABOR 11:06 → OB 10-05 15:36 | PROVIDERS: PCP Psychiatry & Neurology Forensic Psychiatry; Visit Provider Obstetrics & Gynecology | DX: O13.3 Gestational [pregnancy-induced] hypertension without significant proteinuria, third trimester (principal); Z3A.33 33 weeks gestation of pregnancy | CPT/HCPCS: 59025; G0378; G0379 ==

== ENCOUNTER 2018-10-18 14:08 | Outpatient (CLI) | payer OTHER, MEDICAID, SELFPAY | END 2018-10-18 14:53 | disposition home or self-care (01) | LOC: LABOR 14:41 → OB 10-20 14:07 | PROVIDERS: PCP Psychiatry & Neurology Forensic Psychiatry; Visit Provider Obstetrics & Gynecology | DX: O13.3 Gestational [pregnancy-induced] hypertension without significant proteinuria, third trimester (principal); Z3A.35 35 weeks gestation of pregnancy | CPT/HCPCS: 59025; 87653; G0378; G0379 ==

== ENCOUNTER → 2018-10-18 16:40 | Outpatient (CLI) | payer OTHER, MEDICAID, SELFPAY ==
[2018-10-19 12:19] LABS: Strep Grp B PCR POS for Grp B Strep
== END ==
PROVIDERS: PCP Psychiatry & Neurology Forensic Psychiatry; Visit Provider Obstetrics & Gynecology
DX: Z34.03 Encounter for supervision of normal first pregnancy, third trimester (principal)
CPT/HCPCS: 87653

== ENCOUNTER 2018-10-22 11:09 | Outpatient (CLI) | payer OTHER, MEDICAID, SELFPAY ==
--- NOTE | 2018-10-22 13:23 | PM.OBTRLD ---
Visit Information Visit Information Date of evaluation: 10/22/18 Primary OB Provider: Francine Villatoro On-call OB Provider: Zee Posey Reason for Evaluation: Yes non-stress test non-stress test reason: hypertension/pre-eclampsia Vital Signs Vital Signs: initial BP 152/97 repeat short time later 131/74 [facility] Medical History (Updated 10/22/18 @ 13:24 by Zee Posey MD) Hypertension (Acute) Seizures (Acute) Surgical History (Updated 08/16/18 @ 15:23 by Iftikhar Brumfield DO) No pertinent past surgical history (Acute) Family History (Updated 12/12/15 @ 00:00 by Randal Moraes, RN) Father Age: 54 PTSD (post-traumatic stress disorder) Grandmother Early onset Alzheimer's dementia without behavioral disturbance Type 2 diabetes mellitus with complication, unspecified senior living insulin use status Mother Age: 50 Essential hypertension Grandfather Cancer Type 2 diabetes mellitus with complication, unspecified terminal superintendent insulin use status Grandmother Adult idiopathic generalized osteoporosis Social History (Updated 08/16/18 @ 15:22 by Iftikhar Brumfield DO) marital status: lives independently: Yes Smoking Status: Former smoker Family History (Updated 12/12/15 @ 00:00 by Randal Moraes, RN) Father Age: 54 PTSD (post-traumatic stress disorder) Grandmother Early onset Alzheimer's dementia without behavioral disturbance Type 2 diabetes mellitus with complication, unspecified senior living insulin use status Mother Age: 50 Essential hypertension Grandfather Cancer Type 2 diabetes mellitus with complication, unspecified terminal superintendent insulin use status Grandmother Adult idiopathic generalized osteoporosis Social History (Updated 08/16/18 @ 15:22 by Iftikhar Brumfield DO) marital status: lives independently: Yes Smoking Status: Former smoker Evaluation Evaluation Baseline heart rate: 130 Variability: Moderate (11-25) monitor accelerations: Present monitor decelerations: Absent Contraction Frequency (minutes): 0 Diagnosis, Plan/Disposition Final Diagnosis (1) Hypertension affecting in third trimester: Current Visit: No Status: Acute (2) 35 weeks gestation of : Current Visit: No Status: Acute Plan/Disposition Plan: reactive NST. Continue biweekly NSTs. Keep follow up appointment routine OB appointment OB Disposition: home
--- NOTE | 2018-10-22 13:26 | P.TNLD_ITS ---
Visit Information Visit Information Date of evaluation: 10/22/18 Primary OB Provider: Francine Villatoro On-call OB Provider: Zee Posey Reason for Evaluation: Yes non-stress test non-stress test reason: hypertension/pre-eclampsia Vital Signs Vital Signs: initial BP 152/97 repeat short time later 131/74 [facility] Medical History (Updated 10/22/18 @ 13:24 by Zee Posey MD) Hypertension (Acute) Seizures (Acute) Surgical History (Updated 08/16/18 @ 15:23 by Iftikhar Brumfield DO) No pertinent past surgical history (Acute) Family History (Updated 12/12/15 @ 00:00 by Randal Moraes, RN) Father Age: 54 PTSD (post-traumatic stress disorder) Grandmother Early onset Alzheimer's dementia without behavioral disturbance Type 2 diabetes mellitus with complication, unspecified senior care insulin use status Mother Age: 50 Essential hypertension Grandfather Cancer Type 2 diabetes mellitus with complication, unspecified 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 insulin use status Grandmother Adult idiopathic generalized osteoporosis Social History (Updated 08/16/18 @ 15:22 by Iftikhar Brumfield DO) marital status: lives independently: Yes Smoking Status: Former smoker Family History (Updated 12/12/15 @ 00:00 by Randal Moraes, RN) Father Age: 54 PTSD (post-traumatic stress disorder) Grandmother Early onset Alzheimer's dementia without behavioral disturbance Type 2 diabetes mellitus with complication, unspecified senior care insulin use status Mother Age: 50 Essential hypertension Grandfather Cancer Type 2 diabetes mellitus with complication, unspecified 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 insulin use status Grandmother Adult idiopathic generalized osteoporosis Social History (Updated 08/16/18 @ 15:22 by Iftikhar Brumfield DO) marital status: lives independently: Yes Smoking Status: Former smoker Evaluation Evaluation Baseline heart rate: 130 Variability: Moderate (11-25) monitor accelerations: Present monitor decelerations: Absent Contraction Frequency (minutes): 0 Diagnosis, Plan/Disposition Final Diagnosis (1) Hypertension affecting in third trimester: Current Visit: No Status: Acute (2) 35 weeks gestation of : Current Visit: No Status: Acute Plan/Disposition Plan: reactive NST. Continue biweekly NSTs. Keep follow up appointment routine OB appointment OB Disposition: home
== END 2018-10-22 12:10 | disposition home or self-care (01) ==
LOC: LABOR 12:03 → OB 10-24 10:05
PROVIDERS: PCP Psychiatry & Neurology Forensic Psychiatry; Visit Provider Obstetrics & Gynecology
DX: O16.3 Unspecified maternal hypertension, third trimester (principal); Z3A.35 35 weeks gestation of pregnancy
CPT/HCPCS: 59025; G0378; G0379

== ENCOUNTER 2018-10-29 10:12 | Outpatient (CLI) | payer OTHER, MEDICAID, SELFPAY | END 2018-10-29 10:43 | disposition home or self-care (01) | LOC: OB 11-01 12:23 | PROVIDERS: Family Provider Obstetrics & Gynecology; PCP Psychiatry & Neurology Forensic Psychiatry | DX: O13.3 Gestational [pregnancy-induced] hypertension without significant proteinuria, third trimester (principal); Z3A.36 36 weeks gestation of pregnancy | CPT/HCPCS: 59025; G0378; G0379 ==

== ENCOUNTER → 2018-11-01 16:06 | Outpatient (CLI) | payer OTHER, MEDICAID, SELFPAY ==
--- NOTE | 2018-11-01 18:26 | P.TNLD_ITS ---
Visit Information Visit Information Date of evaluation: 11/01/18 Primary OB Provider: Francine Villatoro Reason for Evaluation: Yes non-stress test non-stress test reason: hypertension/pre-eclampsia Evaluation Evaluation Baseline heart rate: 125 Variability: Moderate (11-25) monitor accelerations: Present monitor decelerations: Absent Contraction Frequency (minutes): 7 Uterine Contraction Intensity: Mild Category of Tracing: I Diagnosis, Plan/Disposition Final Diagnosis (1) 37 weeks gestation of : Current Visit: No Status: Acute (2) Gestational hypertension: Current Visit: No Status: Acute Plan/Disposition Plan: Discharge to home [facility]'s S/S [facility] reviewed OB Disposition: home
== END ==
PROVIDERS: Visit Provider Obstetrics & Gynecology
DX: O13.9 Gestational [pregnancy-induced] hypertension without significant proteinuria, unspecified trimester (principal); Z3A.37 37 weeks gestation of pregnancy
CPT/HCPCS: 59025; G0378

== ENCOUNTER 2018-11-05 09:49 | Outpatient (CLI) | payer OTHER, MEDICAID, SELFPAY | END 2018-11-05 10:45 | disposition home or self-care (01) | LOC: OB 11-08 08:02 | PROVIDERS: Family Provider Obstetrics & Gynecology; PCP Psychiatry & Neurology Forensic Psychiatry; Visit Provider Obstetrics & Gynecology | DX: O13.3 Gestational [pregnancy-induced] hypertension without significant proteinuria, third trimester (principal); Z3A.37 37 weeks gestation of pregnancy | CPT/HCPCS: 59025; G0378; G0379 ==

== ENCOUNTER 2018-11-09 11:18 | Outpatient (CLI) | payer OTHER, MEDICAID, SELFPAY | END 2018-11-09 12:11 | disposition home or self-care (01) | LOC: OB 11-10 10:47 | PROVIDERS: Family Provider Obstetrics & Gynecology; PCP Psychiatry & Neurology Forensic Psychiatry; Visit Provider Obstetrics & Gynecology | DX: O24.419 Gestational diabetes mellitus in pregnancy, unspecified control (principal); Z3A.38 38 weeks gestation of pregnancy | CPT/HCPCS: 59025; G0378; G0379 ==

== ENCOUNTER 2018-11-12 10:56 | Outpatient (CLI) | payer OTHER, MEDICAID, SELFPAY ==
--- NOTE | 2018-11-18 16:52 | PM.OBTRLD ---
Visit Information Visit Information Date of evaluation: 11/12/18 Primary OB Provider: Francine Villatoro On-call OB Provider: Veronica Bautista Reason for Evaluation: Yes non-stress test non-stress test reason: hypertension/pre-eclampsia PFSH Medical History (Updated 11/10/18 @ 07:57 by Jessie Duncan) Hypertension (Acute) Seizures (Acute) Surgical History (System 11/10/18 @ 07:57 by Jessie Duncan) No pertinent past surgical history (Acute) Family History (System 11/10/18 @ 07:57 by Jessie Duncan) Father Age: 54 PTSD (post-traumatic stress disorder) Grandmother Early onset Alzheimer's dementia without behavioral disturbance Type 2 diabetes mellitus with complication, unspecified correction insulin use status Mother Age: 50 Essential hypertension Grandfather Cancer Type 2 diabetes mellitus with complication, unspecified correction insulin use status Grandmother Adult idiopathic generalized osteoporosis Social History (System 11/10/18 @ 07:57 by Jessie Duncan) marital status: lives independently: Yes Smoking Status: Former smoker Family History (System 11/10/18 @ 07:57 by Jessie Duncan) Father Age: 54 PTSD (post-traumatic stress disorder) Grandmother Early onset Alzheimer's dementia without behavioral disturbance Type 2 diabetes mellitus with complication, unspecified correction insulin use status Mother Age: 50 Essential hypertension Grandfather Cancer Type 2 diabetes mellitus with complication, unspecified director long term care insulin use status Grandmother Adult idiopathic generalized osteoporosis Social History (System 11/10/18 @ 07:57 by Jessie Duncan) marital status: lives independently: Yes Smoking Status: Former smoker Evaluation Evaluation Baseline heart rate: 140 Variability: Moderate (11-25) monitor accelerations: Present monitor decelerations: Absent Category of Tracing: I Diagnosis, Plan/Disposition Final Diagnosis (1) Gestational hypertension: Current Visit: No Status: Acute Plan/Disposition Plan: IOL planned for 11/14. Reactive NST today. OB Disposition: home
== END 2018-11-12 11:47 | disposition home or self-care (01) ==
LOC: LABOR 11:40 → OB 11-14 15:15
PROVIDERS: Family Provider Obstetrics & Gynecology; PCP Psychiatry & Neurology Forensic Psychiatry; Visit Provider Obstetrics & Gynecology
DX: O24.429 Gestational diabetes mellitus in childbirth, unspecified control (principal); Z3A.38 38 weeks gestation of pregnancy
CPT/HCPCS: 59025; G0378; G0379

== ENCOUNTER 2018-11-14 18:18 | Inpatient (IN) | payer OTHER, MEDICAID, SELFPAY ==
[2018-11-14 20:22] VITALS: BP 148/85; PULSE 89
[2018-11-14] MEDS: LABETALOL 100 MG TABLET 300 MG PO (20:22)
[2018-11-14] MEDS: miSOPROStol 25 MCG TABLET VAG (20:30)
[2018-11-14] MEDS: levETIRAcetam 250 MG TABLET 750 MG PO (21:01)
[2018-11-14 21:14] LABS: Add Manual Diff / Slide Review NO; Basophils Absolute Auto 0 /uL (0-100); Basophils Percent Auto 0.2 % (0-2); Eosinophils Absolute Auto 200 /uL (0-450); Eosinophils Percent Auto 1.6 % (2-4); Hematocrit 33.9 % (36-46); Hemoglobin 11.5 g/dL (12.0-16.0); Lymphocytes Absolute Auto 2100 /uL (1100-4500); Lymphocytes Percent Auto 14.7 % (25-40); Mean Corpuscular Volume 97.2 fL (80-100); Monocytes Absolute Auto 1400 /uL (0-900); Monocytes Percent Auto 9.5 % (3-14); Neutrophils Absolute Auto 10500 /uL (1500-7000); Platelet Count 321 X10^3/uL (150-400); Red Blood Cell Count 3.49 X10^6/uL (4.0-5.2); Red Cell Distribution Width 13.4 % (11.6-14.8); White Blood Cell Count 14.2 X10^3/uL (4.5-11.0)
[2018-11-14 21:47] VITALS: BP 150/76
[2018-11-15] MEDS: miSOPROStol 25 MCG TABLET VAG ×3 (01:16→21:10)
[2018-11-15] MEDS: ONDANSETRON 4 MG/2 ML INJ IV (08:06)
[2018-11-15] MEDS: LACTATED RINGERS 1,000 ML 100 ML IV ×2 (08:40→16:38)
[2018-11-15 08:41] VITALS: BP 164/103; PULSE 82
[2018-11-15] MEDS: LABETALOL 100 MG TABLET 200 MG PO (08:41)
[2018-11-15] MEDS: levETIRAcetam 250 MG TABLET 750 MG PO ×2 (09:00→21:10)
[2018-11-15] MEDS: OXYTOCIN PREMIX 30 UNIT/500 ML PLAST..BAG IV (09:39)
[2018-11-15] MEDS: PENICILLIN G POTASSIUM 5,000,000 UNIT in DEXTROSE 5% IN WATER 250 ML IV (11:47)
[2018-11-15 12:22] VITALS: BP 153/99; PULSE 81
[2018-11-15] MEDS: HYDRALAZINE 20 MG/ML VIAL 5 MG IV (12:22)
[2018-11-15 14:37] LABS: Add Manual Diff / Slide Review NO; Basophils Absolute Auto 100 /uL (0-100); Basophils Percent Auto 0.6 % (0-2); Eosinophils Absolute Auto 200 /uL (0-450); Hematocrit 35.7 % (36-46); Hemoglobin 12.3 g/dL (12.0-16.0); Lymphocytes Absolute Auto 1500 /uL (1100-4500); Lymphocytes Percent Auto 10.2 % (25-40); Mean Corpuscular HGB Conc 34.4 % (30-36); Mean Corpuscular Hemoglobin 33.1 PG (26-34); Mean Corpuscular Volume 96.1 fL (80-100); Monocytes Absolute Auto 1300 /uL (0-900); Monocytes Percent Auto 8.6 % (3-14); Neutrophils Absolute Auto 12000 /uL (1500-7000); Neutrophils Percent Auto 79.6 % (50-75); Platelet Count 301 X10^3/uL (150-400); Red Blood Cell Count 3.71 X10^6/uL (4.0-5.2); Red Cell Distribution Width 13.2 % (11.6-14.8)
[2018-11-15 14:50] LABS: Aspartate Aminotransferase 20 IU/L (14-36); Blood Urea Nitrogen 5 mg/dL (7-17); Estimated Glomerular Filt Rate > 60.0 mL/min (>60); Uric Acid 3.5 mg/dL (2.5-6.2)
[2018-11-15] MEDS: PENICILLIN G POTASSIUM 3,000,000 UNIT/50 ML FROZ.PIGGY 100 UNIT IV ×2 (16:14→21:09)
--- NOTE | 2018-11-15 18:44 | PM.OBHP.1 ---
OB HPI Date/Time Date of admission: 11/14/18 Date Patient Seen: 11/15/18 Time Patient Seen: 18:44 History of Present Condition Chief complaint: : 3 Para: 0 Estimated Date of Delivery: 11/22/18 Estimated Gestational Age (weeks): 39 Narrative: Becky Hamilton is a 28 year old female 3 para 0 at 39 weeks gestation who received 2 doses of Cytotec last evening and is for Pitocin induction today Indications Indication for induction OB: medical complication (hypertension) History of Present care: limited care, initiated at week # (transferred at 31 weeks), number of visits (5) and pounds weight gain (30) Dating criteria: LMP confirmed by 1st trimester US Ultrasounds: normal 1st trimester US and normal mid trimester US Medical complications: neurological (seizure disorder, hypertension) Preadmission Labs Blood type: A (+) positive -: Antibody screen: negative, GBS status: positive, HBsAG: negative, HIV: negative and RPR/VDLR: negative -: Chlamydia screen: not detected and Gonorrhea screen: not detected -: Rubella: immune and Varicella: immune HCT: 34.6 PAP: Normal Urine: negative 1 hr GTT: 83 Prior (ies) History: 2010 8 weeks Induced Ab 2013 SAB Evaluation Evaluation Baseline heart rate: 140 Variability: Moderate (11-25) monitor accelerations: Present monitor decelerations: Absent Contraction Frequency (minutes): 3 Uterine Contraction Intensity: Mild Category of Tracing: I Cervical dilation (cm): 2 Cervical effacement (%): 75 station: -1 Laboratory results: Laboratory Tests 11/14/18 11/14/18 11/15/18 21:00 21:00 14:25 WBC 14.2 H 15.0 H RBC 3.49 L 3.71 L Hgb 11.5 L 12.3 Hct 33.9 L 35.7 L MCV 97.2 96.1 MCH 33.0 33.1 MCHC 34.0 34.4 RDW 13.4 13.2 Plt Count 321 301 Neut % (Auto) 74.0 79.6 H Lymph % (Auto) 14.7 L 10.2 L [place] % (Auto) 9.5 8.6 Eos % (Auto) 1.6 L 1.0 L Baso % (Auto) 0.2 0.6 Neut # (Auto) 74810 H 75542 H Lymph # (Auto) 2100 1500 [place] # (Auto) 1400 H 1300 H Eos # (Auto) 200 200 Baso # (Auto) 0 100 BUN Creatinine Estimated GFR BUN/Creatinine Ratio Uric Acid AST Blood Type A Positive Antibody Screen Negative 11/15/18 14:25 WBC RBC Hgb Hct MCV MCH MCHC RDW Plt Count Neut % (Auto) Lymph % (Auto) [place] % (Auto) Eos % (Auto) Baso % (Auto) Neut # (Auto) Lymph # (Auto) [place] # (Auto) Eos # (Auto) Baso # (Auto) BUN 5 L Creatinine 0.50 L Estimated GFR > 60.0 BUN/Creatinine Ratio 10.0 Uric Acid 3.5 AST 20 Blood Type Antibody Screen [facility] Medical History (Updated 11/10/18 @ 07:57 by Jessie Duncan) Hypertension (Acute) Seizures (Acute) Surgical History (System 11/10/18 @ 07:57 by Jessie Duncan) No pertinent past surgical history (Acute) Family History (System 11/10/18 @ 07:57 by Jessie Duncan) Father Age: 54 PTSD (post-traumatic stress disorder) Grandmother Early onset Alzheimer's dementia without behavioral disturbance Type 2 diabetes mellitus with complication, unspecified terminal supervisor insulin use status Mother Age: 50 Essential hypertension Grandfather Cancer Type 2 diabetes mellitus with complication, unspecified terminal supervisor insulin use status Grandmother Adult idiopathic generalized osteoporosis Social History (System 11/10/18 @ 07:57 by Jessie Duncan) marital status: lives independently: Yes Smoking Status: Former smoker Family History (System 11/10/18 @ 07:57 by Jessie Duncan) Father Age: 54 PTSD (post-traumatic stress disorder) Grandmother Early onset Alzheimer's dementia without behavioral disturbance Type 2 diabetes mellitus with complication, unspecified terminal supervisor insulin use status Mother Age: 50 Essential hypertension Grandfather Cancer Type 2 diabetes mellitus with complication, unspecified terminal supervisor insulin use status Grandmother Adult idiopathic generalized osteoporosis Social History (System 11/10/18 @ 07:57 by Jessie Duncan) marital status: lives independently: Yes Smoking Status: Former smoker Meds Home Medications Medication Instructions Recorded Confirmed Type PNV cmb#95-ferrous fumarate-FA 1 tab PO DAILY 08/16/18 11/14/18 History [] Double Electric Breast Pump #1 ea 10/10/18 11/14/18 Rx labetalol 200 mg tablet 200 mg PO TID #90 tab 10/18/18 11/14/18 Rx levetiracetam 750 mg PO BID 11/14/18 11/14/18 History Allergies Allergy/AdvReac Type Severity Reaction Status Date / Time No Known Drug Allergies Allergy Verified 11/10/18 07:57 Exam Vital Signs (past 8 hours): - 11/15/18 12:22 Pulse Rate 81 Blood Pressure 153/99 H Narrative Exam Narrative: Generally: Patient lying on left side, no acute distress Lungs: Clear to auscultation bilaterally Cardiovascular: Regular rate and rhythm Fundal height: 38 cm Estimated weight: 6 and half to 7 lb Extremities: 1+ edema, negative Homans Objective Labs Result Diagrams: 11/15/18 14:25 11/15/18 14:25 Labs: Laboratory Results - last 24 hr 11/14/18 11/14/18 11/15/18 21:00 21:00 14:25 WBC 14.2 H 15.0 H RBC 3.49 L 3.71 L Hgb 11.5 L 12.3 Hct 33.9 L 35.7 L MCV 97.2 96.1 MCH 33.0 33.1 MCHC 34.0 34.4 RDW 13.4 13.2 Plt Count 321 301 Neut % (Auto) 74.0 79.6 H Lymph % (Auto) 14.7 L 10.2 L [place] % (Auto) 9.5 8.6 Eos % (Auto) 1.6 L 1.0 L Baso % (Auto) 0.2 0.6 Neut # (Auto) 47079 H 18830 H Lymph # (Auto) 2100 1500 [place] # (Auto) 1400 H 1300 H Eos # (Auto) 200 200 Baso # (Auto) 0 100 BUN Creatinine Estimated GFR BUN/Creatinine Ratio Uric Acid AST Blood Type A Positive Antibody Screen Negative 11/15/18 14:25 WBC RBC Hgb Hct MCV MCH MCHC RDW Plt Count Neut % (Auto) Lymph % (Auto) [place] % (Auto) Eos % (Auto) Baso % (Auto) Neut # (Auto) Lymph # (Auto) [place] # (Auto) Eos # (Auto) Baso # (Auto) BUN 5 L Creatinine 0.50 L Estimated GFR > 60.0 BUN/Creatinine Ratio 10.0 Uric Acid 3.5 AST 20 Blood Type Antibody Screen Assessment and Plan Assessment and Plan Assessment and Plan narrative: Assessment: 28-year-old 3 para 0 at 39 weeks gestation with hypertension, seizure disorder, and oligohydramnios Status post 2 doses of Cytotec last night Status post Pitocin all day today with very little cervical change Plan: Discontinue Pitocin Cytotec overnight Restart Pitocin in the morning Epidural as necessary Labetalol 300 mg p.o. t.i.d. Time Spent with Patient Total time spent with greater than 50% in coordination of care (as documented) at patient's floor/unit and/or counseling patient:: 25 - 35 minutes
--- NOTE | 2018-11-15 18:48 | P.HPOB_ITS ---
OB HPI Date/Time Date of admission: 11/14/18 Date Patient Seen: 11/15/18 Time Patient Seen: 18:44 History of Present Condition Chief complaint: : 3 Para: 0 Estimated Date of Delivery: 11/22/18 Estimated Gestational Age (weeks): 39 Narrative: Becky Hamilton is a 28 year old female 3 para 0 at 39 weeks gestation who received 2 doses of Cytotec last evening and is for Pitocin induction today Indications Indication for induction OB: medical complication (hypertension) History of Present care: limited care, initiated at week # (transferred at 31 weeks), number of visits (5) and pounds weight gain (30) Dating criteria: LMP confirmed by 1st trimester US Ultrasounds: normal 1st trimester US and normal mid trimester US Medical complications: neurological (seizure disorder, hypertension) Preadmission Labs Blood type: A (+) positive -: Antibody screen: negative, GBS status: positive, HBsAG: negative, HIV: negative and RPR/VDLR: negative -: Chlamydia screen: not detected and Gonorrhea screen: not detected -: Rubella: immune and Varicella: immune HCT: 34.6 PAP: Normal Urine: negative 1 hr GTT: 83 Prior (ies) History: 2010 8 weeks Induced Ab 2013 SAB Evaluation Evaluation Baseline heart rate: 140 Variability: Moderate (11-25) monitor accelerations: Present monitor decelerations: Absent Contraction Frequency (minutes): 3 Uterine Contraction Intensity: Mild Category of Tracing: I Cervical dilation (cm): 2 Cervical effacement (%): 75 station: -1 Laboratory results: Laboratory Tests 11/14/18 11/14/18 11/15/18 21:00 21:00 14:25 WBC 14.2 H 15.0 H RBC 3.49 L 3.71 L Hgb 11.5 L 12.3 Hct 33.9 L 35.7 L MCV 97.2 96.1 MCH 33.0 33.1 MCHC 34.0 34.4 RDW 13.4 13.2 Plt Count 321 301 Neut % (Auto) 74.0 79.6 H Lymph % (Auto) 14.7 L 10.2 L [place] % (Auto) 9.5 8.6 Eos % (Auto) 1.6 L 1.0 L Baso % (Auto) 0.2 0.6 Neut # (Auto) 42643 H 87982 H Lymph # (Auto) 2100 1500 [place] # (Auto) 1400 H 1300 H Eos # (Auto) 200 200 Baso # (Auto) 0 100 BUN Creatinine Estimated GFR BUN/Creatinine Ratio Uric Acid AST Blood Type A Positive Antibody Screen Negative 11/15/18 14:25 WBC RBC Hgb Hct MCV MCH MCHC RDW Plt Count Neut % (Auto) Lymph % (Auto) [place] % (Auto) Eos % (Auto) Baso % (Auto) Neut # (Auto) Lymph # (Auto) [place] # (Auto) Eos # (Auto) Baso # (Auto) BUN 5 L Creatinine 0.50 L Estimated GFR > 60.0 BUN/Creatinine Ratio 10.0 Uric Acid 3.5 AST 20 Blood Type Antibody Screen [facility] Medical History (Updated 11/10/18 @ 07:57 by Jessie Duncan) Hypertension (Acute) Seizures (Acute) Surgical History (System 11/10/18 @ 07:57 by Jessie Duncan) No pertinent past surgical history (Acute) Family History (System 11/10/18 @ 07:57 by Jessie Duncan) Father Age: 54 PTSD (post-traumatic stress disorder) Grandmother Early onset Alzheimer's dementia without behavioral disturbance Type 2 diabetes mellitus with complication, unspecified terminal superintendent insulin use status Mother Age: 50 Essential hypertension Grandfather Cancer Type 2 diabetes mellitus with complication, unspecified terminal superintendent insulin use status Grandmother Adult idiopathic generalized osteoporosis Social History (System 11/10/18 @ 07:57 by Jessie Duncan) marital status: lives independently: Yes Smoking Status: Former smoker Family History (System 11/10/18 @ 07:57 by Jessie Duncan) Father Age: 54 PTSD (post-traumatic stress disorder) Grandmother Early onset Alzheimer's dementia without behavioral disturbance Type 2 diabetes mellitus with complication, unspecified terminal superintendent insulin use status Mother Age: 50 Essential hypertension Grandfather Cancer Type 2 diabetes mellitus with complication, unspecified terminal superintendent insulin use status Grandmother Adult idiopathic generalized osteoporosis Social History (System 11/10/18 @ 07:57 by Jessie Duncan) marital status: lives independently: Yes Smoking Status: Former smoker Meds Home Medications Medication Instructions Recorded Confirmed Type PNV cmb#95-ferrous fumarate-FA 1 tab PO DAILY 08/16/18 11/14/18 History [] Double Electric Breast Pump #1 ea 10/10/18 11/14/18 Rx labetalol 200 mg tablet 200 mg PO TID #90 tab 10/18/18 11/14/18 Rx levetiracetam 750 mg PO BID 11/14/18 11/14/18 History Allergies Allergy/AdvReac Type Severity Reaction Status Date / Time No Known Drug Allergies Allergy Verified 11/10/18 07:57 Exam Vital Signs (past 8 hours): - 11/15/18 12:22 Pulse Rate 81 Blood Pressure 153/99 H Narrative Exam Narrative: Generally: Patient lying on left side, no acute distress Lungs: Clear to auscultation bilaterally Cardiovascular: Regular rate and rhythm Fundal height: 38 cm Estimated weight: 6 and half to 7 lb Extremities: 1+ edema, negative Homans Objective Labs Result Diagrams: 11/15/18 14:25 11/15/18 14:25 Labs: Laboratory Results - last 24 hr 11/14/18 11/14/18 11/15/18 21:00 21:00 14:25 WBC 14.2 H 15.0 H RBC 3.49 L 3.71 L Hgb 11.5 L 12.3 Hct 33.9 L 35.7 L MCV 97.2 96.1 MCH 33.0 33.1 MCHC 34.0 34.4 RDW 13.4 13.2 Plt Count 321 301 Neut % (Auto) 74.0 79.6 H Lymph % (Auto) 14.7 L 10.2 L [place] % (Auto) 9.5 8.6 Eos % (Auto) 1.6 L 1.0 L Baso % (Auto) 0.2 0.6 Neut # (Auto) 56365 H 71067 H Lymph # (Auto) 2100 1500 [place] # (Auto) 1400 H 1300 H Eos # (Auto) 200 200 Baso # (Auto) 0 100 BUN Creatinine Estimated GFR BUN/Creatinine Ratio Uric Acid AST Blood Type A Positive Antibody Screen Negative 11/15/18 14:25 WBC RBC Hgb Hct MCV MCH MCHC RDW Plt Count Neut % (Auto) Lymph % (Auto) [place] % (Auto) Eos % (Auto) Baso % (Auto) Neut # (Auto) Lymph # (Auto) [place] # (Auto) Eos # (Auto) Baso # (Auto) BUN 5 L Creatinine 0.50 L Estimated GFR > 60.0 BUN/Creatinine Ratio 10.0 Uric Acid 3.5 AST 20 Blood Type Antibody Screen Assessment and Plan Assessment and Plan Assessment and Plan narrative: Assessment: 28-year-old 3 para 0 at 39 weeks gestation with hypertension, seizure disorder, and oligohydramnios Status post 2 doses of Cytotec last night Status post Pitocin all day today with very little cervical change Plan: Discontinue Pitocin Cytotec overnight Restart Pitocin in the morning Epidural as necessary Labetalol 300 mg p.o. t.i.d. Time Spent with Patient Total time spent with greater than 50% in coordination of care (as documented) at patient's floor/unit and/or counseling patient:: 25 - 35 minutes
[2018-11-15 21:10] VITALS: BP 142/92; PULSE 81
[2018-11-15] MEDS: LABETALOL 100 MG TABLET 300 MG PO (21:10)
[2018-11-16] MEDS: PENICILLIN G POTASSIUM 3,000,000 UNIT/50 ML FROZ.PIGGY 100 UNIT IV ×4 (01:10→13:08)
[2018-11-16] MEDS: miSOPROStol 25 MCG TABLET VAG (01:40)
[2018-11-16] MEDS: HYDRALAZINE 20 MG/ML VIAL 5 MG IV ×5 (05:35→22:18)
[2018-11-16] MEDS: ONDANSETRON 4 MG/2 ML INJ IV (05:55)
[2018-11-16] MEDS: LABETALOL 100 MG TABLET 300 MG PO ×3 (08:15→21:17)
[2018-11-16] MEDS: levETIRAcetam 250 MG TABLET 750 MG PO ×2 (08:15→21:17)
[2018-11-16] MEDS: OXYTOCIN PREMIX 30 UNIT/500 ML PLAST..BAG IV (08:16)
[2018-11-16 09:21] LABS: Add Manual Diff / Slide Review NO; Basophils Absolute Auto 100 /uL (0-100); Basophils Percent Auto 0.4 % (0-2); Eosinophils Absolute Auto 100 /uL (0-450); Eosinophils Percent Auto 0.5 % (2-4); Hemoglobin 13.8 g/dL (12.0-16.0); Lymphocytes Absolute Auto 1400 /uL (1100-4500); Mean Corpuscular HGB Conc 35.5 % (30-36); Mean Corpuscular Hemoglobin 34.1 PG (26-34); Mean Corpuscular Volume 96.1 fL (80-100); Monocytes Absolute Auto 1200 /uL (0-900); Monocytes Percent Auto 7.5 % (3-14); Neutrophils Absolute Auto 12900 /uL (1500-7000); Neutrophils Percent Auto 82.6 % (50-75); Platelet Count 315 X10^3/uL (150-400); Red Blood Cell Count 4.06 X10^6/uL (4.0-5.2); Red Cell Distribution Width 13.4 % (11.6-14.8); White Blood Cell Count 15.6 X10^3/uL (4.5-11.0)
[2018-11-16 09:28] LABS: Prothrombin Time 10.9 SECONDS (10.1-12.7)
[2018-11-16 09:31] LABS: PTT Partial Thromboplastin Tim 27 SECONDS (26.4-36.2)
[2018-11-16 09:33] LABS: Alanine Aminotransferase 14 IU/L (9-52); Albumin 4.3 g/dL (3.5-5.0); Albumin Globulin Ratio 1.3 (1.0-2.8); Alkaline Phosphatase 143 U/L (38-126); Aspartate Aminotransferase 20 IU/L (14-36); Bilirubin Total 0.4 mg/dL (0.2-1.3); Bilirubin Unconjugated 0.4 mg/dL (0.0-1.1); Globulin 3.2 g/dL (1.7-4.1); HEMOLYSIS < 15 (0-50); Total Protein 7.5 g/dL (6.3-8.2)
[2018-11-16] MEDS: fentaNYL 100 MCG/2 ML INJ 50 MCG IV (10:12)
[2018-11-16] MEDS: LACTATED RINGERS 1,000 ML 100 ML IV (12:40)
--- NOTE | 2018-11-16 19:11 | PM.OBPRVD ---
Events: Labor Induction Delivery date: 11/16/18 Intrapartal events: None and Intolerance Cervical ripening method: per misoprostal protocol Induction method: per pitocin protocol Delivery augmentation: rupture of membranes Delivery monitor: external FHT, external uterine and internal uterine Route of delivery: Episiotomy description: None L&D Laceration Description: Superficial (bilateral labial) Delivery repair: chromic Estimated blood loss (mL): 200 Anesthesia type: Epidural Complications: Labile BP during labor Narrative: Patient complete and pushed for 45 minutes. At 3:18 p.m., a live male infant delivered spontaneously over an intact perineum. No nuchal cord. The remainder of the body delivered without difficulty and was placed on mom's abdomen. when the cord stopped pulsing, the cord was double clamped and cut. Cord bloods were obtained. The placenta delivered intact with a 3 vessel cord at 3:25 p.m.. Fundus was massaged to firm. Superficial bilateral labial lacerations were repaired with 4 0 chromic. Estimated blood loss 200 cc. Apgars 9 at 1 minute and 9 at 5 minutes. Epidural analgesia. . Mom and stable to recovery. Plan for aftercare: To routine care
[2018-11-16 21:17] VITALS: BP 166/100; PULSE 81
[2018-11-16 22:18] VITALS: BP 172/102; PULSE 88
[2018-11-17 07:04] LABS: Add Manual Diff / Slide Review NO; Basophils Absolute Auto 100 /uL (0-100); Basophils Percent Auto 0.3 % (0-2); Eosinophils Absolute Auto 100 /uL (0-450); Eosinophils Percent Auto 0.5 % (2-4); Hematocrit 36.7 % (36-46); Hemoglobin 12.6 g/dL (12.0-16.0); Lymphocytes Absolute Auto 1700 /uL (1100-4500); Lymphocytes Percent Auto 8.3 % (25-40); Mean Corpuscular HGB Conc 34.3 % (30-36); Mean Corpuscular Volume 96.4 fL (80-100); Monocytes Absolute Auto 1500 /uL (0-900); Monocytes Percent Auto 7.5 % (3-14); Neutrophils Absolute Auto 17100 /uL (1500-7000); Neutrophils Percent Auto 83.4 % (50-75); Platelet Count 332 X10^3/uL (150-400); Red Cell Distribution Width 13.6 % (11.6-14.8); White Blood Cell Count 20.5 X10^3/uL (4.5-11.0)
[2018-11-17 07:55] VITALS: BP 163/101
[2018-11-17] MEDS: PRENATAL VIT,CALC/IRON/FOLIC 1 TABLET 1 TAB PO (07:55)
[2018-11-17] MEDS: LABETALOL 100 MG TABLET 300 MG PO ×3 (07:55→21:08)
[2018-11-17] MEDS: DOCUSATE 250 MG CAPSULE PO (07:55)
[2018-11-17] MEDS: levETIRAcetam 250 MG TABLET 750 MG PO ×2 (07:56→21:07)
[2018-11-17 14:48] VITALS: BP 153/98; PULSE 100
[2018-11-17] MEDS: HYDRALAZINE 10 MG TABLET PO (21:11)
[2018-11-18 06:15] VITALS: BP 155/95; PULSE 91
[2018-11-18] MEDS: LABETALOL 100 MG TABLET 300 MG PO (06:15)
[2018-11-18 06:30] VITALS: BP 155/95; PULSE 91
[2018-11-18] MEDS: HYDRALAZINE 10 MG TABLET PO (06:30)
[2018-11-18] MEDS: levETIRAcetam 250 MG TABLET 750 MG PO (09:06)
[2018-11-18] MEDS: DOCUSATE 250 MG CAPSULE PO (09:07)
[2018-11-18] MEDS: PRENATAL VIT,CALC/IRON/FOLIC 1 TABLET 1 TAB PO (09:07)
[2018-11-18 09:20] VITALS: BP 150/91; PULSE 92; RESP 16; TEMP 36.7
--- NOTE | 2018-12-01 19:42 | PM.OBPN.1 ---
Subjective - OB Patient comments: no complaints and pain well controlled [place] baby status: doing well feeding status: exclusively breast feeding Date Patient Seen: 11/17/18 Time Patient Seen: 10:30 Exam Vital Signs (past 8 hours): Generally: Patient is sitting up in bed, holding infant, no acute distress Fundus: Firm at U -2 Extremities: Negative Homans, 1+ DTRs, 1+ edema Objective Labs Result Diagrams: 11/17/18 06:52 11/15/18 14:25 Assessment & Plan Plan day: 1 plan OB: routine care Comments: Restarted labetalol 200 mg p.o. b.i.d. Time Spent With Patient Total time spent is greater than 50% in coordination of care (as documented) at patient's floor/unit and/or counseling patient: 15-24 minutes
--- NOTE | 2018-12-01 19:44 | PM.OBDS.1 ---
Discharge Providers Date of admission: 11/14/18 18:18 Discharge Date: 11/18/18 Primary care physician: Ry Bustillo MD Consults: 11/16/18 16:12 Consult to Hedis Registered Nurse Rn Routine Comment: Discharge provider: Francine Villatoro MD Summary Date Patient Seen: 11/18/18 Time Patient Seen: 13:30 Procedures: Cytotec cervical ripening Pitocin induction of labor Epidural analgesia Spontaneous vaginal delivery Superficial labial tear repair Hospital Course: Patient presented on 11/14/2018 for Cytotec cervical ripening. On the morning of 11/15/2018 she was started on Pitocin induction of labor. By that evening there was no cervical change. The Pitocin was stopped. She received Cytotec again overnight. On the morning of 11/16/2018 she was again started on Pitocin. She progressed to complete dilation and had a spontaneous vaginal delivery at 3:18 p.m.. This was without complication. Her course was only complicated by elevated blood pressures which were treated with oral labetalol. Peripartum Data Delivery Method: Natural Vaginal Laceration description: Superficial (labial) Episiotomy description: None Procedures: Cytotec cervical ripening Pitocin induction of labor Spontaneous vaginal delivery Superficial laceration repair complications: other (labile hypertension) Time Spent with Patient Total time spent providing and/or coordinating discharge services: Objective Labs Result Diagrams: 11/17/18 06:52 11/15/18 14:25 Exam Vital Signs (past 8 hours): Generally: Patient is sitting up in bed, holding , no acute distress Fundus: Firm at U -2 Extremities: 1+ edema, negative Homans, 1+ DTRs Discharge Plan Discharge Plan Patient Disposition: Home Discharge comment: Call with fever, chills, bleeding vaginally more than a pad in an hour Discharge Med Rec/Prescriptions Prescriptions: New hydralazine 10 mg tablet 10 mg PO TID Qty: 90 RF: 3 labetalol 100 mg tablet 100 mg PO TID Qty: 60 RF: 2 Continued labetalol 200 mg tablet 200 mg PO TID Qty: 90 RF: 0 PNV cmb#95-ferrous fumarate-FA [] 28 mg iron- 800 mcg Tablet 1 tab PO DAILY RF: 0 levetiracetam 750 mg tablet 750 mg PO BID RF: 0 No Action Double Electric Breast Pump Qty: 1 RF: 0 labetalol 300 mg tablet 300 mg PO TID Qty: 90 RF: 1 Follow up/Referrals: Francine Villatoro MD [Family Provider] - (Follow up appointment for with pediatric follow up with Dr. Chris luis for Wednesday, November 21 @11:45am. Nurse visit with Dr. Villatoro's nurse for blood pressure check @1:15pm.) Provider Discharge Instructions Diet: Regular Activity: No intercourse Skin/Wound/Dressing Care Report to your healthcare provider any signs of infection, such as:: chills, fever, increased pain and unusual drainage Visit Report/Discharge Packet Instructions: DI for Labor and Delivery, Vaginal Stand Alone Forms: Discharge: Care Discharge Data Primary Care Provider: Ry Bustillo Attending Provider: Francine Villatoro Admit Date/Time: 11/14/18 18:18 Discharges patient from system. Discharge Date/Time: 11/18/18 10:00
== END 2018-11-18 10:00 | disposition home or self-care (01) | DRG 560 ==
PROVIDERS: Anesthesiology; Admitting Provider Obstetrics & Gynecology; Family Provider Obstetrics & Gynecology; PCP Psychiatry & Neurology Forensic Psychiatry; Visit Provider Obstetrics & Gynecology
DX: O10.92 Unspecified pre-existing hypertension complicating childbirth (principal); O99.354 Diseases of the nervous system complicating childbirth; O41.03X0 Oligohydramnios, third trimester, not applicable or unspecified; Z3A.39 39 weeks gestation of pregnancy; Z37.0 Single live birth; G40.909 Epilepsy, unspecified, not intractable, without status epilepticus; O70.0 First degree perineal laceration during delivery
CPT/HCPCS: 01967; 36415; 59050; 59409; 80076; 84450; 84550; 85025; 85610; 85730; 86850; 86900; 86901; G0379; J0360; J2405; J2540; J2590; J3010

== ENCOUNTER → 2021-04-04 13:06 | Outpatient (CLI) | payer OTHER, MEDICAID, SELFPAY ==
[2021-04-04 13:12] LABS: Bacteria Urine None Seen; RBC Urine None Seen (0-5/HPF)
[2021-04-04 13:58] LABS: Appearance Urine UA CLEAR; Bilirubin Urine UA NEGATIVE (NEGATIVE); Color Urine UA YELLOW; Glucose Urine UA NEGATIVE (Negative); Ketones Urine UA NEGATIVE (NEGATIVE); Leukocyte Esterase Urine UA NEGATIVE (NEGATIVE); Nitrite Urine UA NEGATIVE (Negative); Occult Blood Urine UA NEGATIVE (Negative); Protein Urine UA NEGATIVE (Negative); Specific Gravity Urine UA 1.015 (1.000-1.035); Urobilinogen Urine UA 0.2 E.U./dL (0.2)
[2021-04-04 14:05] LABS: Culture Indicated Urine Cult Not Indicated; Squamous Epithelial Cell Urine 0-1 /HPF (0-5/HPF); WBC Urine 0-1/HPF (0-5/HPF)
[2021-04-04 14:57] LABS: Thyroid Stimulating Hormone 0.891 uIU/mL (0.47-4.68)
[2021-04-04 16:05] LABS: Creatinine Urine Random 114.2 mg/dL; Protein (Total) Urine Random 6 mg/dL (0-12); Protein Creatinine Ratio Urine 0.05 GRAM/24H; Sodium Urine Random 46 mmol/L (30-90)
[2021-04-05 11:10] LABS: Parathyroid Hormone Int 29 pg/mL (15-65)
[2021-04-14 12:14] LABS: Aldosterone/Renin Activity Rat 4.3 (0.0-30.0); Plama Renin, LC/MS/MS 2.853 ng/mL/hr (0.167-5.380)
== END ==
PROVIDERS: Family Provider Obstetrics & Gynecology; PCP Psychiatry & Neurology Forensic Psychiatry; Referring Provider Student in an Organized Health Care Education/Training Program; Visit Provider Student in an Organized Health Care Education/Training Program
DX: I10 Essential (primary) hypertension (principal)
CPT/HCPCS: 36415; 81001; 82088; 82570; 83970; 84156; 84244; 84300; 84443

== ENCOUNTER → 2021-04-07 14:46 | Outpatient (CLI) | payer OTHER, MEDICAID, SELFPAY ==
[2021-04-09 12:10] LABS: Dopamine, Ur 24hr 242 ug/24 hr (0-510); Epinephrine, U 24hr 6 ug/24 hr (0-20); Norepinephrine Ur 24hr 27 ug/24 hr (0-135)
[2021-04-09 16:16] LABS: Normetanephrine Total 283 ug/24 hr (95-449); Urine, Metanephrine 66 ug/L (Undefined); Urine, Normetanephrine 96 ug/L (Undefined)
== END ==
PROVIDERS: Family Provider Obstetrics & Gynecology; PCP Psychiatry & Neurology Forensic Psychiatry; Referring Provider Student in an Organized Health Care Education/Training Program; Visit Provider Student in an Organized Health Care Education/Training Program
DX: I10 Essential (primary) hypertension (principal)
CPT/HCPCS: 82384; 83835

== ENCOUNTER → 2021-07-01 14:06 | Outpatient (CLI) | payer OTHER, MEDICAID, SELFPAY ==
[2021-07-01 15:00] LABS: BUN Creatinine Ratio 20.5 (6-22); Blood Urea Nitrogen 15 mg/dL (7-17); Calcium 9.6 mg/dL (8.4-10.2); Carbon Dioxide 23 mmol/L (22-32); Chloride 103 mmol/L (98-107); Estimated Glomerular Filt Rate > 60.0 mL/min (>60); Glucose 94 mg/dL (70-100); HEMOLYSIS < 15 (0-50); Potassium 3.9 mmol/L (3.4-5.1); Sodium 137 mmol/L (137-145)
== END ==
PROVIDERS: Family Provider Obstetrics & Gynecology; PCP Psychiatry & Neurology Forensic Psychiatry; Referring Provider Student in an Organized Health Care Education/Training Program; Visit Provider Student in an Organized Health Care Education/Training Program
DX: N05.9 Unspecified nephritic syndrome with unspecified morphologic changes (principal)
CPT/HCPCS: 36415; 80048

== ENCOUNTER → 2022-02-06 15:03 | Outpatient (CLI) | payer OTHER, MEDICAID, SELFPAY ==
[2022-02-06 15:34] LABS: Add Manual Diff / Slide Review NO; Basophils Absolute Auto 100 /uL (0-100); Basophils Percent Auto 0.6 % (0-2); Eosinophils Absolute Auto 100 /uL (0-450); Eosinophils Percent Auto 0.9 % (2-4); Hematocrit 35.8 % (36-46); Hemoglobin 12.5 g/dL (12.0-16.0); Lymphocytes Absolute Auto 1800 /uL (1100-4500); Lymphocytes Percent Auto 16.7 % (25-40); Mean Corpuscular HGB Conc 34.9 % (30-36); Mean Corpuscular Hemoglobin 32.1 PG (26-34); Mean Corpuscular Volume 92.1 fL (80-100); Monocytes Absolute Auto 900 /uL (0-900); Monocytes Percent Auto 8.6 % (3-14); Neutrophils Absolute Auto 7800 /uL (1500-7000); Neutrophils Percent Auto 73.2 % (50-75); Platelet Count 325 X10^3/uL (150-400); Red Blood Cell Count 3.89 X10^6/uL (4.0-5.2); Red Cell Distribution Width 13.1 % (11.6-14.8); White Blood Cell Count 10.7 X10^3/uL (4.5-11.0)
[2022-02-06 15:38] LABS: Appearance Urine UA CLEAR; Bilirubin Urine UA NEGATIVE (NEGATIVE); Color Urine UA YELLOW; Glucose Urine UA NEGATIVE (Negative); Ketones Urine UA NEGATIVE (NEGATIVE); Leukocyte Esterase Urine UA NEGATIVE (NEGATIVE); Nitrite Urine UA NEGATIVE (Negative); Occult Blood Urine UA NEGATIVE (Negative); Protein Urine UA NEGATIVE (Negative); Specific Gravity Urine UA 1.015 (1.000-1.035); Urobilinogen Urine UA 0.2 E.U./dL (0.2)
[2022-02-06 15:39] LABS: pH Urine UA 6.5 (4.5-8.0)
[2022-02-06 15:57] LABS: Alanine Aminotransferase 18 IU/L (<35); Aspartate Aminotransferase 26 IU/L (14-36); BUN Creatinine Ratio 17.9 (6-22); Blood Urea Nitrogen 10 mg/dL (7-17); Estimated Glomerular Filt Rate > 60 mL/min (>60); Uric Acid 3.7 mg/dL (2.5-6.2)
[2022-02-06 16:11] LABS: Creatinine Urine Random 109.9 mg/dL; Protein (Total) Urine Random 7 mg/dL (0-12); Protein Creatinine Ratio Urine 0.06 GRAM/24H
[2022-02-06 16:47] LABS: HIV 1 & 2 Ab/Ag 4th Gen Combo NEGATIVE (NEGATIVE); Hep C Virus Ab w/Reflex Quant NEGATIVE s/c (NEGATIVE); Hepatitis B Surface Antigen NEGATIVE s/c (NEGATIVE); Rubella Antibody IgG 24.9 IU/mL (>15)
[2022-02-07 07:40] LABS: RPR Screen Non Reactive (Non Reactive)
[2022-02-07 15:25] LABS: Varicella IgG Antibody 1122 index (Immune >165)
[2022-02-09 13:36] LABS: Estriol, Free 0.75 ng/mL (.); Inhibin A, Dimeric 203.32 pg/mL (.); Inhibin A, MoM 1.48 (.); Maternal Ethnicity Caucasian (.); Maternal Weight 187 lbs (.); Number of Fetuses No (.); OSBR Risk 1 IN 10000 (.); Results Report (.); Test Results *Screen Positive* (.); hCG, MoM 1.49 (.); hCG, Serum 54187 mIU/mL (.)
== END ==
PROVIDERS: Family Provider Obstetrics & Gynecology; PCP Psychiatry & Neurology Forensic Psychiatry; Referring Provider Obstetrics & Gynecology; Visit Provider Obstetrics & Gynecology
DX: O16.2 Unspecified maternal hypertension, second trimester (principal); Z3A.16 16 weeks gestation of pregnancy; Z01.84 Encounter for antibody response examination
CPT/HCPCS: 36415; 80055; 81003; 82105; 82565; 82570; 82677; 84156; 84450; 84460; 84520; 84550; 84702; 86336; 86769; 86787; 86803; 86850; 86900; 86901; 87086; 87389

== ENCOUNTER → 2022-03-04 13:33 | Outpatient (CLI) | payer OTHER, MEDICAID, SELFPAY ==
[2022-03-04 17:53] LABS: Urine N gonorrhoeae NOT DETECTED
[2022-03-04 18:04] LABS: Urine Chlamydia NOT DETECTED
== END ==
PROVIDERS: Family Provider Obstetrics & Gynecology; PCP Psychiatry & Neurology Forensic Psychiatry; Visit Provider Obstetrics & Gynecology
DX: Z34.82 Encounter for supervision of other normal pregnancy, second trimester (principal); Z3A.19 19 weeks gestation of pregnancy
CPT/HCPCS: 87491; 87591

== ENCOUNTER → 2022-03-06 12:15 | Outpatient (CLI) | payer OTHER, MEDICAID, SELFPAY ==
--- NOTE | 2022-03-06 12:17 | DI.US.S_ITS ---
PROCEDURE: US OB >= 14 WEEKS FETUS INDICATIONS: ANATOMY OUTSIDE/PRIOR DATING DATA: Last menstrual period (LMP): 10/17/2021 LMP-based estimated date of delivery (MARCELINO): 07/24/2022. First dating scan (date and location): 01/05/2022. Estimated date of delivery (MARCELINO) from first dating scan: 07/25/2022. The calculations are made using the ultrasound MARCELINO of 07/25/2022. TECHNIQUE: Real-time scanning was performed of the fetus, with image documentation and biometric measurements. COMPARISON: [facility], , OB >= 14 WEEKS FETUS, 02/06/2022, 14:54. FINDINGS: General: A single living intrauterine gestation is present. Presentation: Vertex. Placenta: Placental position is anterior , without previa. Amniotic fluid index: 14.8 cm, normal range is 5-24 cm. Single deepest vertical pocket is 4.8 cm. heart rate: 149 beats per minute. Maternal cervical canal: 4.4 cm long. Normal lower limit is 2.5 cm. biometrics: Biparietal diameter: 4.5cm 19 weeks 3 days Head circumference: 16.9cm 19 weeks 4 days Abdominal circumference: 15.2cm 20 weeks 3 days Femur length: 3.2cm 20 weeks Clinically estimated gestational age: 19 weeks 6 days Composite gestational age from present scan: 19 weeks 6 days Estimated weight and percentile: 334 g; 61st percentile Anatomic survey: Neuro: Ventricles are non-dilated at less than 10 mm. Cisterna magna is normal at 3-11 mm. Cerebellum is normal in size and morphology. Nuchal skin fold: Normal at less than 6 mm between 14-21 weeks gestational age. Face: Nose and lips, facial profile are normal. Spine: No evidence for spina bifida. Heart: 4-chambered heart is present, with normal ventricular outflow tracts. Diaphragm: Diaphragm is intact. Stomach: Left-sided stomach is present. Kidneys: No hydronephrosis. Normal is less than 5 mm in 2nd trimester, less than 7 mm in 3rd trimester. Cord: 3-vessel cord has orthotopic insertion. Bladder: Normal in size. Extremities: All 4 extremities identified. IMPRESSION: 1. Single living IUP redemonstrated and interval growth is normal. 2. Normal anatomic survey. We strive to produce accurate, complete, and clear reports of imaging services. To assist us in improving patient care, this report was composed using standard report templates and voice recognition software. Therefore, it may contain abnormal punctuation, insertions and/or omissions. Occasional wrong-word or sound-alike substitutions may occur. Though we review the report and make efforts to correct it, we do recommend that the report be read carefully in proper context to recognize any text inaccuracies Dictated by: Rigo LERNER Interpreted: Ang Willis MD on 03/06/2022 at 14:36 Transcribed by: MALENA on 03/06/2022 at 14:38 Approved by: Ang Willis M.D. on 03/06/2022 at 17:49
== END ==
PROVIDERS: Family Provider Obstetrics & Gynecology; PCP Registered Nurse; Referring Provider Obstetrics & Gynecology; Visit Provider Obstetrics & Gynecology
DX: Z34.82 Encounter for supervision of other normal pregnancy, second trimester (principal); Z3A.19 19 weeks gestation of pregnancy
CPT/HCPCS: 76811

== ENCOUNTER → 2022-04-06 12:56 | Outpatient (CLI) | payer OTHER, MEDICAID, SELFPAY ==
[2022-04-06 14:51] LABS: Hematocrit 32.1 % (36-46); Hemoglobin 11.2 g/dL (12.0-16.0)
[2022-04-06 14:52] LABS: GTT (PREG) 1 Hour PP 50gm Dose 120 mg/dL (76-139); Magnesium 1.6 mg/dL (1.6-2.3)
[2022-04-06 15:10] LABS: Free T4, Direct Thyroxine 0.77 ng/dL (0.78-2.19)
[2022-04-06 15:24] LABS: Thyroid Stimulating Hormone 0.277 uIU/mL (0.47-4.68)
== END ==
PROVIDERS: Family Provider Obstetrics & Gynecology; PCP Registered Nurse; Referring Provider Obstetrics & Gynecology; Visit Provider Obstetrics & Gynecology
DX: I10 Essential (primary) hypertension (principal); Z34.82 Encounter for supervision of other normal pregnancy, second trimester; Z3A.26 26 weeks gestation of pregnancy
CPT/HCPCS: 36415; 82950; 83735; 84439; 84443; 85014; 85018

== ENCOUNTER 2022-05-25 15:23 | Outpatient (CLI) | payer OTHER, MEDICAID, SELFPAY | END 2022-05-25 16:08 | disposition home or self-care (01) | LOC: OB 05-29 16:44 | PROVIDERS: Family Provider Obstetrics & Gynecology; PCP Registered Nurse; Referring Provider Obstetrics & Gynecology; Visit Provider Obstetrics & Gynecology | DX: O13.3 Gestational [pregnancy-induced] hypertension without significant proteinuria, third trimester (principal); O99.353 Diseases of the nervous system complicating pregnancy, third trimester; G40.909 Epilepsy, unspecified, not intractable, without status epilepticus; Z3A.31 31 weeks gestation of pregnancy | CPT/HCPCS: 59025; G0378; G0379 ==

== ENCOUNTER 2022-06-03 10:56 | Observation (INO) | payer OTHER, MEDICAID, SELFPAY ==
[2022-06-03 12:04] LABS: Add Manual Diff / Slide Review NO; Basophils Absolute Auto 0 /uL (0-100); Basophils Percent Auto 0.3 % (0-2); Eosinophils Absolute Auto 100 /uL (0-450); Eosinophils Percent Auto 0.7 % (2-4); Hematocrit 33.5 % (36-46); Hemoglobin 11.7 g/dL (12.0-16.0); Lymphocytes Absolute Auto 2000 /uL (1100-4500); Mean Corpuscular HGB Conc 34.7 % (30-36); Mean Corpuscular Hemoglobin 32.3 PG (26-34); Mean Corpuscular Volume 93.1 fL (80-100); Monocytes Absolute Auto 1100 /uL (0-900); Monocytes Percent Auto 7.9 % (3-14); Neutrophils Absolute Auto 10200 /uL (1500-7000); Neutrophils Percent Auto 76.1 % (50-75); Platelet Count 384 X10^3/uL (150-400); Red Cell Distribution Width 12.6 % (11.6-14.8); White Blood Cell Count 13.4 X10^3/uL (4.5-11.0)
[2022-06-03 12:17] LABS: Alanine Aminotransferase 18 IU/L (<35); Albumin 3.9 g/dL (3.5-5.0); Albumin Globulin Ratio 1.1 (1.0-2.8); Alkaline Phosphatase 76 U/L (38-126); Aspartate Aminotransferase 20 IU/L (14-36); Bilirubin Total 0.3 mg/dL (0.2-1.3); Bilirubin Unconjugated 0.3 mg/dL (0.0-1.1); Globulin 3.5 g/dL (1.7-4.1); HEMOLYSIS < 15 (0-50); Total Protein 7.4 g/dL (6.3-8.2); Uric Acid 4.5 mg/dL (2.5-6.2)
--- NOTE | 2022-06-03 13:19 | PM.OBTRLD ---
Visit Information Visit Information Date of evaluation: 06/03/22 Primary OB Provider: Francine Villatoro On-call OB Provider: Kai Keating Reason for Evaluation: Yes non-stress test Comments/Additional reasons for admission: 31 yo at 32+5 weeks EGA w/ chronic HTN presenting for NST. Vital Signs Vital Signs: Max BP =163/87 Min BP = 124/77 MAP Range = 96-115 [facility] Medical History 33 weeks gestation of 35 weeks gestation of 37 weeks gestation of Gestational hypertension Gluten enteropathy Headache (~2019) Heart palpitations Hypertension Hypertension affecting in third trimester Ovarian cyst (~2017) Scoliosis (~2007) Seizures Surgical History No pertinent past surgical history Family History Father Age: 58 PTSD (post-traumatic stress disorder) Hypertension Hyperlipidemia Grandmother Early onset Alzheimer's dementia without behavioral disturbance Type 2 diabetes mellitus with complication, unspecified usp insulin use status Diabetes mellitus Hypertension Mother Age: 54 Essential hypertension Grandfather Cancer Type 2 diabetes mellitus with complication, unspecified intermediate school teacher insulin use status Hypertension Diabetes mellitus Grandmother Adult idiopathic generalized osteoporosis Hypertension Stroke Brother Hypertension Brother Psoriasis Social History marital status: unmarried,living together (engaged) household members: spouse and children lives independently: Yes housing: house pets and animals: Yes (2 dogs and 2 outdoor cats.) education level: college (some college) occupational status: unemployed current occupational exposures/hazards: No special fay needs: No seatbelt use: always water heater temp set < 120 deg: No working smoke detector in home: Yes fire extinguisher in home: Yes carbon monox detector in home: Yes firearms in home: No do you feel safe at home: Yes Smoking Status: Former smoker second hand exposure: No alcohol intake: former substance use type: marijuana (Not using while ) during the past year weight has: increased > 10 lbs (20+lb) well-balanced diet: daily or most days daily servings fruits/ve-4 caffeine: No (quit due to BP) Type(s) of exercise: walking frequency: 3-4 times per week Objective Labs Result Diagrams: 06/03/22 11:46 Labs: Laboratory Results - last 24 hr 06/03/22 06/03/22 11:46 11:46 WBC 13.4 H RBC 3.60 L Hgb 11.7 L Hct 33.5 L MCV 93.1 MCH 32.3 MCHC 34.7 RDW 12.6 Plt Count 384 Neut % (Auto) 76.1 H Lymph % (Auto) 15.0 L [place] % (Auto) 7.9 Eos % (Auto) 0.7 L Baso % (Auto) 0.3 Neut # (Auto) 08133 H Lymph # (Auto) 2000 [place] # (Auto) 1100 H Eos # (Auto) 100 Baso # (Auto) 0 Uric Acid 4.5 Total Bilirubin 0.3 Conjugated Bilirubin 0.0 Unconjugated Bilirubin 0.3 AST 20 ALT 18 Alkaline Phosphatase 76 Total Protein 7.4 Albumin 3.9 Globulin 3.5 Albumin/Globulin Ratio 1.1 Protein:Creatinine ratio = .24 Evaluation Evaluation Baseline heart rate: 125 Variability: Moderate (11-25) monitor accelerations: Present Monitor Decelerations: Absent Category of Tracing: Reactive Diagnosis, Plan/Disposition Final Diagnosis (1) : Status: Acute Problem details: 32+5 weeks EGA (2) Chronic hypertension: Status: Acute Plan/Disposition Plan: PEC labs obtained and currently negative for evidence of developing PEC. Protein:Creatinine ratio is .24 and will need to be followed closely given her fairly labile BP on atenolol. Continue present management plan with close follow-up follow-up as scheduled and weekly NST's OB Disposition: home
[2022-06-03 13:20] LABS: Protein (Total) Urine Random 12 mg/dL (0-12); Protein Creatinine Ratio Urine 0.24 GRAM/24H
== END 2022-06-03 13:25 | disposition home or self-care (01) ==
PROVIDERS: Obstetrics & Gynecology; Admitting Provider Obstetrics & Gynecology; Family Provider Obstetrics & Gynecology; PCP Registered Nurse; Referring Provider Obstetrics & Gynecology; Visit Provider Obstetrics & Gynecology
DX: O10.913 Unspecified pre-existing hypertension complicating pregnancy, third trimester (principal); Z3A.32 32 weeks gestation of pregnancy
CPT/HCPCS: 36415; 59025; 59050; 80076; 82570; 84156; 84550; 85025; G0378; G0379

== ENCOUNTER 2022-06-08 13:41 | Outpatient (CLI) | payer OTHER, MEDICAID, SELFPAY | END 2022-06-08 14:18 | disposition home or self-care (01) | LOC: OB 06-15 07:56 | PROVIDERS: Family Provider Obstetrics & Gynecology; PCP Registered Nurse; Referring Provider Obstetrics & Gynecology; Visit Provider Obstetrics & Gynecology | DX: O13.3 Gestational [pregnancy-induced] hypertension without significant proteinuria, third trimester (principal); Z3A.33 33 weeks gestation of pregnancy | CPT/HCPCS: 59025; G0378; G0379 ==

== ENCOUNTER 2022-06-16 15:02 | Outpatient (CLI) | payer OTHER, MEDICAID, SELFPAY | END 2022-06-16 15:37 | disposition home or self-care (01) | LOC: OB 06-21 11:20 | PROVIDERS: Family Provider Obstetrics & Gynecology; PCP Registered Nurse; Referring Provider Obstetrics & Gynecology; Visit Provider Obstetrics & Gynecology | DX: O13.3 Gestational [pregnancy-induced] hypertension without significant proteinuria, third trimester (principal); Z3A.34 34 weeks gestation of pregnancy | CPT/HCPCS: 59025; G0378; G0379 ==

== ENCOUNTER → 2022-07-03 14:45 | Outpatient (CLI) | payer OTHER, MEDICAID, SELFPAY ==
[2022-07-04 13:56] LABS: Strep Grp B PCR POS for Grp B Strep
== END ==
PROVIDERS: Family Provider Obstetrics & Gynecology; PCP Registered Nurse; Visit Provider Obstetrics & Gynecology
DX: Z34.83 Encounter for supervision of other normal pregnancy, third trimester (principal); Z3A.37 37 weeks gestation of pregnancy
CPT/HCPCS: 87653

== ENCOUNTER 2022-07-03 15:13 | Observation (INO) | payer OTHER, MEDICAID, SELFPAY ==
--- NOTE | 2022-07-26 21:57 | PM.OBTRLD ---
Visit Information Visit Information Date of evaluation: 07/03/22 Primary OB Provider: Francine Villatoro On-call OB Provider: Francine Villatoro Reason for Evaluation: Yes non-stress test non-stress test reason: hypertension/pre-eclampsia REPLACED BY [facility] Medical History 33 weeks gestation of 35 weeks gestation of 37 weeks gestation of Gestational hypertension Gluten enteropathy Headache (~2019) Heart palpitations Hypertension Hypertension affecting in third trimester Ovarian cyst (~2017) Scoliosis (~2007) Seizures Surgical History No pertinent past surgical history Family History Father Age: 58 PTSD (post-traumatic stress disorder) Hypertension Hyperlipidemia Grandmother Early onset Alzheimer's dementia without behavioral disturbance Type 2 diabetes mellitus with complication, unspecified mcfp insulin use status Diabetes mellitus Hypertension Mother Age: 54 Essential hypertension Grandfather Cancer Type 2 diabetes mellitus with complication, unspecified mcfp insulin use status Hypertension Diabetes mellitus Grandmother Adult idiopathic generalized osteoporosis Hypertension Stroke Brother Hypertension Brother Psoriasis Social History marital status: unmarried,living together (engaged) household members: spouse and children lives independently: Yes housing: house pets and animals: Yes (2 dogs and 2 outdoor cats.) education level: college (some college) occupational status: unemployed current occupational exposures/hazards: No special fay needs: No seatbelt use: always water heater temp set < 120 deg: No working smoke detector in home: Yes fire extinguisher in home: Yes carbon monox detector in home: Yes firearms in home: No do you feel safe at home: Yes Smoking Status: Never smoker second hand exposure: No alcohol intake: former substance use type: marijuana (Not using while ) during the past year weight has: increased > 10 lbs (20+lb) well-balanced diet: daily or most days daily servings fruits/ve-4 caffeine: No (quit due to BP) Type(s) of exercise: walking frequency: 3-4 times per week Evaluation Evaluation Baseline heart rate: 120 Variability: Moderate (11-25) monitor accelerations: Present Monitor Decelerations: Absent Category of Tracing: Reactive Diagnosis, Plan/Disposition Plan/Disposition Plan: Assessment: 32 year old at 36+6 wks gestation Chronic hypretension Reactive NST Plan: D/C to home [facility] Warning signs reviewed F/U as scheduled OB Disposition: home
== END 2022-07-03 16:10 | disposition home or self-care (01) ==
LOC: LABOR 15:15
PROVIDERS: Admitting Provider Obstetrics & Gynecology; Family Provider Obstetrics & Gynecology; PCP Registered Nurse; Referring Provider Obstetrics & Gynecology; Visit Provider Obstetrics & Gynecology
DX: O13.3 Gestational [pregnancy-induced] hypertension without significant proteinuria, third trimester (principal); O99.353 Diseases of the nervous system complicating pregnancy, third trimester; G40.909 Epilepsy, unspecified, not intractable, without status epilepticus; Z3A.36 36 weeks gestation of pregnancy
CPT/HCPCS: 59025; 87653; G0378; G0379

== ENCOUNTER 2022-07-06 18:49 | Inpatient (IN) | payer OTHER, MEDICAID, SELFPAY ==
--- NOTE | 2022-07-06 19:16 | PM.OBHP.IH.1 ---
OB HPI Date/Time Date of admission: 07/06/22 Date Patient Seen: 07/06/22 Time Patient Seen: 19:16 History of Present Condition Chief complaint: observation of labor MARCELINO Calculator Estimated Delivery Date Method Current WG Current Estimate 07/24/22 LMP (Uncertain) 37w 4d Other Estimates 07/25/22 Ultrasound #1 37w 3d Estimated Gestational Age (weeks): 37+3 : 3 Para: 1 care: good care, initiated at week # (11), number of visits (8) and pounds weight gain (26) Dating criteria OB: LMP confirmed by 1st trimester US Ultrasounds: normal 1st trimester US and normal mid trimester US Obstetrical complications: other (Grade 3 placenta at 37 weeks, abnormal quad screen) Medical complications OB: cardiovascular (Chronic hypertension) Indications Indication for induction OB: gestational HTN/pre-eclampsia and other (Grade 3 placenta) Preadmission Labs Last OB Lab Results: Blood Type A Positive 07/06/22 20:25 Antibody Screen Negative 07/06/22 20:25 Hematocrit 32.5 % (36-46) L 07/06/22 20:25 Hemoglobin 11.1 g/dL (12.0-16.0) L 07/06/22 20:25 Hepatitis B Surface Antigen Negative s/c (NEGATIVE) 02/06/22 15:10 Hepatitis C Antibody Negative s/c (NEGATIVE) 02/06/22 15:10 Rubella Antibody 24.9 IU/mL (>15) 02/06/22 15:10 Varicella-Zoster IgG Antibody 1122 index (Immune >165) 02/06/22 15:10 Glucose 1 Hour 120 mg/dL (76-139) 04/06/22 14:08 Group B Streptococcus (PCR) Pos for grp b strep H 07/03/22 14:45 -: Chlamydia screen: negative, Gonorrhea screen: negative and Urine: negative Genetic Screens: Quad screen: Abnormal External Labs -: Urine: negative Prior (ies) Past Pregnancies Del. Date GA/Weeks Labor Lgth Wt Sex Route Outcome Anesthesia Place Delv Breastfeed Preg Comp Name 01/06/12 6 spontaneous 11/16/18 39 5 6 lb 2 oz Male vaginal live - full term IH 2 years induced hyper- [place] Evaluation Evaluation Baseline heart rate: 135 Variability: Moderate (11-25) monitor accelerations: Present Monitor Decelerations: Absent Status: Category l Dilation (cm): 1 Effacement (%): 50 station: -2 Position of cervix: posterior Consistency: medium [facility] Medical History 33 weeks gestation of 35 weeks gestation of 37 weeks gestation of Gestational hypertension Gluten enteropathy Headache (~2019) Heart palpitations Hypertension Hypertension affecting in third trimester Ovarian cyst (~2017) Scoliosis (~2007) Seizures Surgical History No pertinent past surgical history Family History Father Age: 58 PTSD (post-traumatic stress disorder) Hypertension Hyperlipidemia Grandmother Early onset Alzheimer's dementia without behavioral disturbance Type 2 diabetes mellitus with complication, unspecified supervisor intermediates insulin use status Diabetes mellitus Hypertension Mother Age: 54 Essential hypertension Grandfather Cancer Type 2 diabetes mellitus with complication, unspecified supervisor intermediates insulin use status Hypertension Diabetes mellitus Grandmother Adult idiopathic generalized osteoporosis Hypertension Stroke Brother Hypertension Brother Psoriasis Social History marital status: unmarried,living together (engaged) household members: spouse and children lives independently: Yes housing: house pets and animals: Yes (2 dogs and 2 outdoor cats.) education level: college (some college) occupational status: unemployed current occupational exposures/hazards: No special fay needs: No seatbelt use: always water heater temp set < 120 deg: No working smoke detector in home: Yes fire extinguisher in home: Yes carbon monox detector in home: Yes firearms in home: No do you feel safe at home: Yes Smoking Status: Never smoker second hand exposure: No alcohol intake: former substance use type: marijuana (Not using while ) during the past year weight has: increased > 10 lbs (20+lb) well-balanced diet: daily or most days daily servings fruits/ve-4 caffeine: No (quit due to BP) Type(s) of exercise: walking frequency: 3-4 times per week Meds Home Medications and Allergies Home Medications Medication Instructions Recorded Confirmed Type vit no.95-ferrous 1 tab PO DAILY 08/16/18 07/06/22 History fumarate 28 mg-folic acid 800 mcg tablet () levetiracetam 750 mg tablet 750 mg PO BID 11/14/18 07/06/22 History hydralazine 25 mg tablet 12.5 mg PO TID hypertension 12/31/21 07/06/22 History atenolol 25 mg tablet 25 mg PO DAILY 03/04/22 07/06/22 History Allergies Allergy/AdvReac Type Severity Reaction Status Date / Time wheat AdvReac Mild Rash Verified 07/03/22 14:24 OB Exam Narrative Exam Narrative: Generally: Patient is sitting up in bed, no acute distress Lungs: Clear to auscultation bilaterally Cardiovascular: Regular rate and rhythm Fundal height: 36 cm Estimated weight: 5 and half to 6 lb Extremities: No edema Skin: Psoriatic lesions Objective Labs Result Diagrams: 07/06/22 20:25 Assessment and Plan Assessment and Plan Assessment and Plan narrative: Assessment: 32-year-old 3 para 1 at 37-,3/7 weeks gestation with a grade 3 placenta Chronic hypertension GBS positive Plan: GBS prophylaxis Cervidil for cervical ripening Epidural as necessary Expected management to spontaneous vaginal delivery Time Spent with Patient Total time spent with greater than 50% in coordination of care (as documented) at patient's floor/unit and/or counseling patient:: 15-24 minutes
[2022-07-06 20:24] VITALS: BP 141/89
[2022-07-06 20:44] LABS: Add Manual Diff / Slide Review NO; Basophils Absolute Auto 0 /uL (0-100); Basophils Percent Auto 0.3 % (0-2); Eosinophils Absolute Auto 100 /uL (0-450); Eosinophils Percent Auto 1.1 % (2-4); Hematocrit 32.5 % (36-46); Hemoglobin 11.1 g/dL (12.0-16.0); Lymphocytes Absolute Auto 2500 /uL (1100-4500); Lymphocytes Percent Auto 18.2 % (25-40); Mean Corpuscular HGB Conc 34.3 % (30-36); Mean Corpuscular Hemoglobin 32.2 PG (26-34); Mean Corpuscular Volume 93.8 fL (80-100); Monocytes Absolute Auto 1200 /uL (0-900); Monocytes Percent Auto 8.5 % (3-14); Neutrophils Absolute Auto 9800 /uL (1500-7000); Neutrophils Percent Auto 71.9 % (50-75); Platelet Count 364 X10^3/uL (150-400); Red Blood Cell Count 3.46 X10^6/uL (4.0-5.2); Red Cell Distribution Width 13.3 % (11.6-14.8); White Blood Cell Count 13.6 X10^3/uL (4.5-11.0)
[2022-07-06] MEDS: DINOPROSTONE VAG (CERVIDIL) 10 MG VAG (20:47)
[2022-07-06 20:54] LABS: COVID19 -Nasal RAPID Negative (Negative)
[2022-07-06] MEDS: ONDANSETRON 4 MG/2 ML INJ IV (22:22)
[2022-07-06] MEDS: LACTATED RINGERS 1,000 ML 100 ML IV (22:22)
[2022-07-07] MEDS: ONDANSETRON 4 MG/2 ML INJ IV ×2 (07:53→18:27)
[2022-07-07] MEDS: levETIRAcetam 250 MG TABLET 750 MG PO ×2 (09:14→22:59)
[2022-07-07] MEDS: atenoloL 25 MG TABLET PO ×2 (09:14→21:59)
[2022-07-07] MEDS: PENICILLIN G POTASSIUM 3,000,000 UNIT/50 ML FROZ.PIGGY 100 UNIT IV ×3 (09:15→17:31)
[2022-07-07] MEDS: OXYTOCIN PREMIX 30 UNIT/500 ML PLAST..BAG IV (09:23)
--- NOTE | 2022-07-07 10:53 | PM.OBPNLAB ---
Date/Time Date Patient Seen: 07/07/22 Time Patient Seen: 09:00 Pain Control Pain control: tolerating well Pelvic Exam Dilation (cm): 3 Effacement (%): 75 station: 0 Amniotic membrane status: Intact Contractions Contractions on admission: none Monitor mode: External Contraction frequency (min): 5 Contraction duration (min): 1 Contraction intensity: Mild Status status: Category l Heart Rate Baseline: 135 Monitor Accelerations: Present Monitor Decelerations: Absent Monitor Variability: Moderate Assessment and Plan Plan: begin patient augmentation Comments: GBS prophylaxis Begin Pitocin AROM once 2nd dose of ATB Epidural prn Expectant management to
[2022-07-07] MEDS: FENT 2MCG/ML BUPIV 0.125% EPI 200 MCG/100 ML PLAST..BAG 6 MCG EPIDURAL ×2 (13:55→19:40)
[2022-07-07 15:16] VITALS: BP 157/83; PULSE 68
[2022-07-07] MEDS: LABETALOL 100 MG TABLET PO (15:16)
[2022-07-07 17:31] VITALS: BP 147/91; PULSE 79
[2022-07-07] MEDS: HYDRALAZINE 25 MG TABLET PO (17:31)
[2022-07-07 18:51] VITALS: BP 161/92; PULSE 73
[2022-07-07] MEDS: HYDRALAZINE 20 MG/ML VIAL 5 MG IV ×2 (18:51→21:57)
--- NOTE | 2022-07-07 19:13 | PM.OBPNLAB ---
Date/Time Date Patient Seen: 07/07/22 Time Patient Seen: 19:13 Pain Control Pain control: epidural Comments: Small window in the low abdomen Pelvic Exam Dilation (cm): 7 Effacement (%): 90 station: -1 Amniotic membrane status: Ruptured Comments: Called to see patient for prolonged decels Contractions Date/Time contractions began: Pitocin turned off when decelerations began Contractions on admission: none Monitor mode: External Pitocin rate (mU/min): 0 Contraction frequency (min): 3 Contraction duration (min): 1 Contraction pattern: Regular Contraction intensity: Strong/Firm Status status: Category l Heart Rate Baseline: 130 Monitor Accelerations: Present Monitor Decelerations: Prolonged, Recurrent and Variable Monitor Variability: Moderate Comments: Pt placed side to side, on hands and knees and then high Taylor's in right lateral and heart tones came back up Assessment and Plan Assessment: active labor and induction ongoing Comments: O2 per NRB Restart Pitocin in 30 min at half the previous rate. Hydralazine 5mg slow IV push given x 1 for BP 160-170's/90's OR notified
[2022-07-07 19:15] VITALS: BP 156/82; PULSE 80
[2022-07-07] MEDS: LACTATED RINGERS 1,000 ML 999 ML IV (19:32)
--- NOTE | 2022-07-07 21:32 | P.PCNOB_ITS ---
Events: Labor Induction and Placental Insufficiency (Grade 3 placenta at 37 weeks) Labor & Delivery Delivery date: 07/07/22 Intrapartal Events: Prolonged Active Phase and Intolerance Cervical ripening method: per Cervidil protocol Induction method: per pitocin protocol Delivery augmentation: rupture of membranes Delivery monitor: external FHT, external uterine, internal FHT and internal uterine Route of delivery: vacuum extraction Indication for instrumentation: nonreassuring FHR tracing Episiotomy description: None L&D Laceration Description: None Quantitative Blood Loss: 75 Anesthesia Type: Epidural Complications: None Narrative: Patient was 8-9 cm and baby was having prolonged decelerations. With pushing, the remainder of the cervix was reduced. A vacuum was applied and with 1 push the vertex delivered over an intact perineum at 2108 pm. The vacuum was removed. The remainder of the body delivered without difficulty and was placed on mom's abdomen. After 1 minute, the cord was double clamped and cut. Cord bloods were obtained. A piece of cord for cord pH was obtained. The placenta delivered intact with a three-vessel cord at 2113 pm. The placenta was found to be extremely calcified. Pitocin was given in the IV fluids after the cord was double clamped and cut. The fundus was massaged to firm. No perineal/vaginal lacerations. Apgars 9 at 1 minute and 9 at 5 minutes. Epidural analgesia. . Mom and stable to recovery. Artery 7.329 Venous 7.307 [place] Baby 1: Infant gender: Female Presentation: vertex Position: Right Occiput Anterior Placenta delivery description: Spontaneous Cord Vessel Description: 3 Vessels and Tight (around the ankles, both) score (1 min): 9 score (5 min): 9 weight: 4 lb 13.2 oz Plan for aftercare: Routine care
[2022-07-07 22:24] VITALS: BP 170/89; PULSE 82
[2022-07-07] MEDS: HYDRALAZINE 20 MG/ML VIAL 10 MG IV (22:47)
[2022-07-07 23:59] VITALS: BP 129/79; PULSE 91
[2022-07-08 06:01] LABS: Hematocrit 32.5 % (36-46); Hemoglobin 11.1 g/dL (12.0-16.0)
[2022-07-08 07:00] VITALS: BP 164/96; PULSE 110; RESP 16; TEMP 37
[2022-07-08 07:55] VITALS: BP 155/98; PULSE 74
[2022-07-08] MEDS: HYDRALAZINE 25 MG TABLET PO ×2 (07:55→20:04)
[2022-07-08 08:45] VITALS: BP 150/94; PULSE 84
[2022-07-08] MEDS: atenoloL 25 MG TABLET PO ×2 (09:27→20:56)
[2022-07-08] MEDS: levETIRAcetam 250 MG TABLET 750 MG PO ×2 (09:43→20:56)
[2022-07-08] MEDS: PRENATAL VIT,CALC/IRON/FOLIC 1 TABLET 1 TAB PO (09:58)
[2022-07-08] MEDS: DOCUSATE 100 MG CAPSULE PO (09:58)
[2022-07-08] MEDS: HYDRALAZINE 25 MG TABLET 12.5 MG PO (14:03)
[2022-07-08 14:58] VITALS: BP 151/91; PULSE 76
--- NOTE | 2022-07-08 17:46 | PM.OBPN.1 ---
Subjective - OB Subjective Patient comments: no complaints and other (labile blood pressure) baby status: doing well and nursing well feeding status: breast and bottle feeding Date Patient Seen: 07/08/22 Time Patient Seen: 17:47 Interval history: PPD#1 s/p VAVD Exam Vital Signs (past 8 hours): - 07/08/22 14:58 Pulse Rate 76 Blood Pressure 151/91 H Narrative Exam Narrative: Generally: Patient is sitting up in bed, holding , no acute distress Fundus: Firm at U-3 Extremities: Trace edema, negative Homans Objective Labs Result Diagrams: 07/08/22 05:51 Labs: Laboratory Results - last 24 hr 07/08/22 05:51 Hgb 11.1 L Hct 32.5 L Assessment & Plan Plan day: 1 plan OB: routine care Time Spent With Patient Time: Total time spent is greater than 50% in coordination of care (as documented) at patient's floor/unit and/or counseling patient: Time with patient: 15-24 minutes
[2022-07-08 20:04] VITALS: BP 147/97; PULSE 80
[2022-07-08 21:42] VITALS: BP 164/96; PULSE 105; RESP 16; TEMP 37
[2022-07-09 07:48] VITALS: BP 150/101; PULSE 118
[2022-07-09] MEDS: HYDRALAZINE 25 MG TABLET 12.5 MG PO (07:48)
[2022-07-09] MEDS: levETIRAcetam 250 MG TABLET 750 MG PO (07:48)
[2022-07-09] MEDS: DOCUSATE 100 MG CAPSULE PO (09:21)
[2022-07-09] MEDS: PRENATAL VIT,CALC/IRON/FOLIC 1 TABLET 1 TAB PO (09:22)
[2022-07-09 09:30] VITALS: BP 164/96; PULSE 105
[2022-07-09] MEDS: atenoloL 25 MG TABLET PO (09:48)
--- NOTE | 2022-07-24 13:58 | P.DS_ITS ---
Discharge Providers Provider Date of admission: 07/06/22 18:49 Discharge Date: 07/09/22 Primary care physician: Ry Meadows ND Consults: 07/08/22 21:30 Consult to Art Psychotherapist Routine Comment: Discharge provider: Francine Villatoro MD Summary Hospital Course Date Patient Seen: 07/09/22 Time Patient Seen: 07:30 Diagnoses: 37-3/7 weeks gestation Chronic hypertension Cervical ripening with Cervidil Induction of labor Vacuum assisted vaginal delivery Epidural analgesia Hospital Course: Patient is a 32-year-old 3 para 1 who presented on July 06, 2022 at 37-,3/7 weeks gestation for cervical ripening/induction of labor. She received 1 dose of Cervidil. She progressed to 3 cm 75% effaced and 0 station the following morning. She progressed throughout the day and received an epidural for pain management. Artificial rupture membranes was performed. She had a vacuum assisted vaginal delivery on July 07, 2022. Her course was unremarkable. She was discharged home on day #2. She was to follow-up at 1 week for blood pressure check and 6 weeks for visit. Peripartum Data Delivery Method: Assisted Delivery (Vacuum) Laceration Description: None Episiotomy description: None Procedures: Cervidil cervical ripening Pitocin induction of labor Artificial rupture of membranes Epidural analgesia Vacuum assisted vaginal delivery complications: none [place] 1: Gender: Female Disposition of : home Status at Discharge Cognitive/behavioral status at discharge: oriented Functional status at discharge: independent ambulation Overall status at discharge: patient is progressing back to baseline Time Spent with Patient Time attestation: Total time spent providing and/or coordinating discharge services: Time spent: Less than 30 minutes Objective Labs Result Diagrams: 07/08/22 05:51 Exam Narrative Exam Narrative: Generally: Patient is sitting up in bed, holding , no acute distress Fundus: Firm at U -2 Extremities: No edema, negative Homans Discharge Plan Discharge Plan Patient Disposition: Home Provider Discharge Comment: Call with fever, chills, or bleeding vaginally more than a pad in an hour Ibuprofen 600 mg every 6 hours as needed for cramping Tylenol 650 mg every 6 hours as needed Discharge orders & Medications Prescriptions: Continued hydralazine 25 mg tablet 12.5 mg PO TID atenolol 25 mg tablet 25 mg PO DAILY PNV cmb#95-ferrous fumarate-FA [] 28 mg iron- 800 mcg Tablet 1 tab PO DAILY levetiracetam 750 mg tablet 750 mg PO BID Follow up/Referrals: Francine Villatoro MD [Family Provider] - 6 Weeks (Appointment with [facility], July at 1:30 pm for post check.) Diet/Activity/Treatments Diet: Regular Activity: Nothing in the vagina and till 6 week visit Skin/Wound/Dressing Care Report to your healthcare provider any signs of infection, such as:: chills, fever, increased pain and unusual drainage Visit Report/Discharge Packet Instructions: DI for Labor and Delivery, Vaginal Discharge Data Primary Care Provider: Ry Meadows
== END 2022-07-09 14:50 | disposition home or self-care (01) | DRG 560 ==
PROVIDERS: Admitting Provider Obstetrics & Gynecology; Family Provider Obstetrics & Gynecology; PCP Registered Nurse; Referring Provider Obstetrics & Gynecology; Visit Provider Obstetrics & Gynecology
DX: O10.92 Unspecified pre-existing hypertension complicating childbirth (principal); O36.5130 Maternal care for known or suspected placental insufficiency, third trimester, not applicable or unspecified; O63.1 Prolonged second stage (of labor); O99.824 Streptococcus B carrier state complicating childbirth; Z3A.37 37 weeks gestation of pregnancy; Z37.0 Single live birth; O76 Abnormality in fetal heart rate and rhythm complicating labor and delivery; Z20.822 Contact with and (suspected) exposure to COVID-19
CPT/HCPCS: 36415; 59050; 59200; 59409; 85014; 85018; 85025; 86850; 86900; 86901; 87635; C9803; G0379; J0360; J2405; J2540; J2590

== ENCOUNTER 2025-05-14 15:54 | Outpatient (CLI) | payer OTHER, SELFPAY ==
--- NOTE | 2025-05-14 16:32 | PM.OBTRLD ---
Visit Information Visit Information Date of evaluation: 05/14/25 Primary OB Provider: Priya Garcia On-call OB Provider: María Jaeger Reason for Evaluation: Yes non-stress test non-stress test reason: other Comments/Additional reasons for admission: cHTN and seizure disorder FOR[facility]LY [facility] Medical History (Updated 04/18/25 @ 13:15 by Machelle Chaudhry, RN) Ovarian cyst (~2018) Abnormal quad screen Heart palpitations Gestational hypertension Hypertension affecting in third trimester Hypertension Surgical History No pertinent past surgical history Family History (Updated 04/18/25 @ 13:18 by Machelle Chaudhry, IVORY) Father Age: 61 PTSD (post-traumatic stress disorder) Hypertension Hyperlipidemia Grandmother Early onset Alzheimer's dementia without behavioral disturbance Type 2 diabetes mellitus with complication, unspecified 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 Diabetes mellitus Hypertension Mother Age: 57 Essential hypertension Grandfather Cancer Type 2 diabetes mellitus with complication, unspecified fdc insulin use status Hypertension Diabetes mellitus Grandmother Adult idiopathic generalized osteoporosis Hypertension Stroke Brother Hypertension Brother Psoriasis Family/Other Crohn's disease Social History marital status: (engaged) number of children: 2 household members: spouse and children lives independently: Yes caregiver/support person: Yes housing: house pets and animals: Yes (dogs) education level: college (some college) 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 occupational exposures/hazards: No special fay needs: No travel history: over 6 months ago seatbelt use: always water heater temp set < 120 deg: No working smoke detector in home: Yes fire extinguisher in home: Yes carbon monox detector in home: Yes firearms in home: No do you feel safe at home: Yes Tobacco: How many years used: 1 (less than 1 year) second hand exposure: Yes (S/O and friends smoke MJ outside) alcohol intake: former (~2/week when not ) substance use type: marijuana (Not using while ) during the past year weight has: increased > 10 lbs (20+lb) well-balanced diet: daily or most days daily servings fruits/ve or more times/day caffeine: Yes (0-1 cup coffee) Type(s) of exercise: walking frequency: 3-4 times per week Evaluation Evaluation Baseline heart rate: 130 Variability: Moderate (6-25) monitor accelerations: Present Monitor Decelerations: Absent Contraction Frequency (minutes): 0 Category of Tracing: Reactive Diagnosis, Plan/Disposition Plan/Disposition Plan: 34 yo presenting for scheduled NST for seizure disorder and cHTN on meds. BP 127/79 today. NST reactive. continue atenatal testing and routine OB care with primary OB
== END 2025-05-14 16:38 | disposition home or self-care (01) ==
LOC: OB 05-15 07:50
PROVIDERS: PCP Registered Nurse; Referring Provider Obstetrics & Gynecology; Visit Provider Obstetrics & Gynecology
DX: O10.913 Unspecified pre-existing hypertension complicating pregnancy, third trimester (principal); O99.353 Diseases of the nervous system complicating pregnancy, third trimester; G40.909 Epilepsy, unspecified, not intractable, without status epilepticus; Z3A.35 35 weeks gestation of pregnancy
CPT/HCPCS: 59025; G0378; G0379

== ENCOUNTER → 2025-05-17 10:04 | Outpatient (CLI) | payer OTHER, SELFPAY ==
[2025-05-17 11:20] LABS: Glucose Fasting Gestational 85 mg/dL (76-95)
[2025-05-17 12:24] LABS: Glucose 1 Hour Gest 158 mg/dL (76-180)
[2025-05-17 13:26] LABS: Glucose 2 Hour Gest 115 mg/dL (76-155)
[2025-05-17 13:27] LABS: Glucose Tol Interp,Gestational INTERPRETATION
== END ==
PROVIDERS: PCP Registered Nurse; Referring Provider Obstetrics & Gynecology; Visit Provider Obstetrics & Gynecology
DX: O09.899 Supervision of other high risk pregnancies, unspecified trimester (principal); G40.909 Epilepsy, unspecified, not intractable, without status epilepticus
CPT/HCPCS: 36415; 80177; 82951; 82952; 86850; 86900; 86901

== ENCOUNTER 2025-05-22 11:28 | Observation (INO) | payer OTHER, SELFPAY ==
[2025-05-22 12:39] LABS: Add Manual Diff / Slide Review NO; Hematocrit 35.2 % (36-46); Hemoglobin 12.1 g/dL (12.0-16.0); Lymphocytes Absolute Auto 2000 /uL (1100-4500); Mean Corpuscular HGB Conc 34.4 % (30-36); Mean Corpuscular Hemoglobin 32.7 PG (26-34); Mean Corpuscular Volume 95.2 fL (80-100); Platelet Count 329 X10^3/uL (150-400)
[2025-05-22 12:55] LABS: Alanine Aminotransferase 18 IU/L (<35); Albumin 4.1 g/dL (3.5-5.0); Albumin Globulin Ratio 1.2 (1.0-2.8); Alkaline Phosphatase 76 U/L (38-126); Blood Urea Nitrogen 11 mg/dL (7-17); Calcium 8.8 mg/dL (8.4-10.2); Carbon Dioxide 18 mmol/L (22-32); Chloride 106 mmol/L (98-107); Estimated Glomerular Filt Rate > 60 mL/min (>60); Globulin 3.3 g/dL (1.7-4.1); Glucose 83 mg/dL (70-99); HEMOLYSIS < 15 (0-50); Potassium 3.9 mmol/L (3.4-5.1); Sodium 132 mmol/L (137-145); Total Protein 7.4 g/dL (6.3-8.2); Uric Acid 4.5 mg/dL (2.5-6.2)
[2025-05-22 13:01] LABS: Protein (Total) Urine Random 8 mg/dL (0-12); Protein Creatinine Ratio Urine 0.11 GRAM/24H
--- NOTE | 2025-05-22 14:15 | PM.OBTRLD ---
Visit Information Visit Information Date of evaluation: 05/22/25 Primary OB Provider: Priya Garcia On-call OB Provider: Priya Garcia Reason for Evaluation: Yes non-stress test Comments/Additional reasons for admission: CHTN on atenolol 25mg BID, hydralazine TID 25/12.5/25mg scheduled NST Vital Signs Vital Signs: BP 120/80 at time of office encounter BP values during NST (initial) 158/95, repeat 139-157/95-100 PO atenolol 25mg given (missed AM dose) 139-165/92-104 PO hydralazine 25mg (missed mid-day dose) 142-153/92-97 [facility] Medical History (Updated 04/18/25 @ 13:15 by Machelle Chaudhry, RN) Ovarian cyst (~2017) Abnormal quad screen Heart palpitations Gestational hypertension Hypertension affecting in third trimester Hypertension Surgical History No pertinent past surgical history Family History (Updated 04/18/25 @ 13:18 by Machelle Chaudhry, IVORY) Father Age: 61 PTSD (post-traumatic stress disorder) Hypertension Hyperlipidemia Grandmother Early onset Alzheimer's dementia without behavioral disturbance Type 2 diabetes mellitus with complication, unspecified 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 Diabetes mellitus Hypertension Mother Age: 57 Essential hypertension Grandfather Cancer Type 2 diabetes mellitus with complication, unspecified 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 Hypertension Diabetes mellitus Grandmother Adult idiopathic generalized osteoporosis Hypertension Stroke Brother Hypertension Brother Psoriasis Family/Other Crohn's disease Social History marital status: (engaged) number of children: 2 household members: spouse and children lives independently: Yes caregiver/support person: Yes housing: house pets and animals: Yes (dogs) education level: college (some college) 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 occupational exposures/hazards: No special fay needs: No travel history: over 6 months ago seatbelt use: always water heater temp set < 120 deg: No working smoke detector in home: Yes fire extinguisher in home: Yes carbon monox detector in home: Yes firearms in home: No do you feel safe at home: Yes Tobacco: How many years used: 1 (less than 1 year) second hand exposure: Yes (S/O and friends smoke MJ outside) alcohol intake: former (~2/week when not ) substance use type: marijuana (Not using while ) during the past year weight has: increased > 10 lbs (20+lb) well-balanced diet: daily or most days daily servings fruits/ve or more times/day caffeine: Yes (0-1 cup coffee) Type(s) of exercise: walking frequency: 3-4 times per week Review of Systems Review of Systems ROS: Yes All systems reviewed with the patient and are negative except as otherwise documented Exam Vital Signs (past 8 hours): see BP trend as documented above Const General: cooperative, healthy appearing and comfortable Nutritional Appearance: overweight Orientation: alert, awake and oriented x3 Limitations: mental status not altered HENMT Head: normal to inspection Face and sinus: normal facial exam Mouth: oral mucosae normal and moist mucous membranes Eyes General: appearance normal, both eyes and all related structures Periorbital: periorbital findings normal (no edema ) Resp Effort & Inspection: normal respiratory effort and able to speak in complete sentences Auscultation: clear to auscultation bilaterally Cardio Pulses: normal peripheral pulses GI Other: gravid, josiah cephalic Other: deferred Skin General: no rashes or lesions noted Neuro General: patient alert, patient awake and patient oriented x3 Motor: muscle tone normal throughout (no hyper-reflexia) Extrem General: normal to inspection (no BLE edema ) Psych Mental Status: mental status grossly normal Judgment: judgment good Objective Labs 05/22/25 12:28 05/22/25 12:28 Labs: Laboratory Results - last 24 hr 05/22/25 05/22/25 12:00 12:28 WBC 11.6 H RBC 3.70 L Hgb 12.1 Hct 35.2 L MCV 95.2 MCH 32.7 MCHC 34.4 RDW 13.3 Plt Count 329 Neut % (Auto) 74.9 Lymph % (Auto) 17.2 L [place] % (Auto) 6.9 Eos % (Auto) 0.6 L Baso % (Auto) 0.4 Neut # (Auto) 8700 H Lymph # (Auto) 2000 [place] # (Auto) 800 Eos # (Auto) 100 Baso # (Auto) 0 Sodium 132 L Potassium 3.9 Chloride 106 Carbon Dioxide 18 L BUN 11 Creatinine 0.46 L Estimated GFR > 60 BUN/Creatinine Ratio 23.9 H Glucose 83 Uric Acid 4.5 Calcium 8.8 Total Bilirubin 0.2 AST 24 ALT 18 Alkaline Phosphatase 76 Total Protein 7.4 Albumin 4.1 Globulin 3.3 Albumin/Globulin Ratio 1.2 U Random Total Protein 8 Urine Creatinine 70.82 Protein/Creatinin Ratio 0.11 Evaluation Evaluation Baseline heart rate: 140 Variability: Moderate (6-25) monitor accelerations: Present Monitor Decelerations: Absent Category of Tracing: Reactive Status: Category l Diagnosis, Plan/Disposition Final Diagnosis (1) Supervision of other high risk pregnancies, unspecified trimester: Status: Acute (2) Chronic hypertension: Status: Acute (3) Seizure disorder: Status: Chronic Problem details: well controlled on Keppra Plan/Disposition Plan: 34yo at 37w2d with CHTN, seizure disorder, co-mgmt with M presents for scheduled NST, new BP exacerbation in setting of missed home medications CHTN exacerbation Pt states today that she did not take AM dose of atenolol. AM dose of atenolol (25mg PO) administered with appropriate response however pt then secondarily had recurrent non-sustained BPs. PIH labs obtained and wnl, preserved creatinine (0.47) and decrease in P/Cr from prior baseline value (0.11 today). Patient asymptomatic without KIRAN, visual changes, malaise or BLE edema [facility] contacted via provider line (Dr. Iftikhar Loja) who is in agreement that current presentation is consistent with BP exacerbation in the setting of medication noncompliance and not reflective of PIH at this time. Patient has scheduled NST f/u at 05/25, next MFM appointment 05/29 Continue current home medication regimen as per HPI, blue band provided and patient given strict parameters for home BP monitoring wherein she would need to return for repeat evaluation Strict FM/labor precautions reviewed Pt reminded to call neurologist following departure today to confirm necessary increase in keppra, recent subtherapeutic value (6) OB Disposition: home
[2025-05-22 15:07] VITALS: BP 161/98; PULSE 73
== END 2025-05-22 15:33 | disposition home or self-care (01) ==
PROVIDERS: Obstetrics & Gynecology; Admitting Provider Obstetrics & Gynecology; PCP Registered Nurse; Referring Provider Obstetrics & Gynecology; Visit Provider Obstetrics & Gynecology
DX: O10.913 Unspecified pre-existing hypertension complicating pregnancy, third trimester (principal); O99.353 Diseases of the nervous system complicating pregnancy, third trimester; G40.909 Epilepsy, unspecified, not intractable, without status epilepticus; Z3A.36 36 weeks gestation of pregnancy
CPT/HCPCS: 59025; 59050; 80053; 84550; 85025; G0378; G0379

== ENCOUNTER → 2025-05-22 12:29 | Outpatient (CLI) | payer OTHER, SELFPAY ==
[2025-05-23 12:08] LABS: Strep Grp B PCR POS for Grp B Strep
== END ==
PROVIDERS: PCP Registered Nurse; Visit Provider Obstetrics & Gynecology
DX: Z36.85 Encounter for antenatal screening for Streptococcus B (principal)
CPT/HCPCS: 87653

== ENCOUNTER 2025-05-25 10:56 | Observation (INO) | payer OTHER, SELFPAY ==
[2025-05-25 11:54] LABS: Add Manual Diff / Slide Review NO; Hematocrit 35.0 % (36-46); Hemoglobin 12.0 g/dL (12.0-16.0); Lymphocytes Absolute Auto 2100 /uL (1100-4500); Mean Corpuscular HGB Conc 34.3 % (30-36); Mean Corpuscular Hemoglobin 32.9 PG (26-34); Mean Corpuscular Volume 96.0 fL (80-100); Platelet Count 334 X10^3/uL (150-400)
[2025-05-25 12:03] LABS: Alanine Aminotransferase 21 IU/L (<35); Albumin 4.1 g/dL (3.5-5.0); Albumin Globulin Ratio 1.3 (1.0-2.8); Alkaline Phosphatase 80 U/L (38-126); Blood Urea Nitrogen 8 mg/dL (7-17); Calcium 9.1 mg/dL (8.4-10.2); Carbon Dioxide 20 mmol/L (22-32); Chloride 104 mmol/L (98-107); Estimated Glomerular Filt Rate > 60 mL/min (>60); Globulin 3.2 g/dL (1.7-4.1); Glucose 83 mg/dL (70-99); HEMOLYSIS < 15 (0-50); Potassium 4.1 mmol/L (3.4-5.1); Sodium 131 mmol/L (137-145); Total Protein 7.3 g/dL (6.3-8.2); Uric Acid 4.8 mg/dL (2.5-6.2)
[2025-05-25 12:12] LABS: Protein (Total) Urine Random 13 mg/dL (0-12); Protein Creatinine Ratio Urine 0.57 GRAM/24H
--- NOTE | 2025-05-25 13:20 | PM.OBTRLD ---
Visit Information Visit Information Date of evaluation: 05/25/25 Primary OB Provider: Priya Garcia Reason for Evaluation: Yes non-stress test Comments/Additional reasons for admission: CHTN on atenolol 25mg BID, hydralazine Vital Signs Vital Signs: initial BP 150s/100s most recent BP 137/89 [facility] Medical History (Updated 04/18/25 @ 13:15 by Machelle Chaudhry, RN) Ovarian cyst (~2018) Abnormal quad screen Heart palpitations Gestational hypertension Hypertension affecting in third trimester Hypertension Surgical History No pertinent past surgical history Family History (Updated 04/18/25 @ 13:18 by Machelle Chaudhry RN) Father Age: 61 PTSD (post-traumatic stress disorder) Hypertension Hyperlipidemia Grandmother Early onset Alzheimer's dementia without behavioral disturbance Type 2 diabetes mellitus with complication, unspecified 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 Diabetes mellitus Hypertension Mother Age: 57 Essential hypertension Grandfather Cancer Type 2 diabetes mellitus with complication, unspecified 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 Hypertension Diabetes mellitus Grandmother Adult idiopathic generalized osteoporosis Hypertension Stroke Brother Hypertension Brother Psoriasis Family/Other Crohn's disease Social History marital status: (engaged) number of children: 2 household members: spouse and children lives independently: Yes caregiver/support person: Yes housing: house pets and animals: Yes (dogs) education level: college (some college) 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 occupational exposures/hazards: No special fay needs: No travel history: over 6 months ago seatbelt use: always water heater temp set < 120 deg: No working smoke detector in home: Yes fire extinguisher in home: Yes carbon monox detector in home: Yes firearms in home: No do you feel safe at home: Yes Tobacco: How many years used: 1 (less than 1 year) second hand exposure: Yes (S/O and friends smoke MJ outside) alcohol intake: former (~2/week when not ) substance use type: marijuana (Not using while ) during the past year weight has: increased > 10 lbs (20+lb) well-balanced diet: daily or most days daily servings fruits/ve or more times/day caffeine: Yes (0-1 cup coffee) Type(s) of exercise: walking frequency: 3-4 times per week Review of Systems Review of Systems ROS: Yes All systems reviewed with the patient and are negative except as otherwise documented Exam Const General: cooperative, healthy appearing, comfortable and well developed Nutritional Appearance: overweight Orientation: alert, awake and oriented x3 Resp Effort & Inspection: normal respiratory effort and able to speak in complete sentences Auscultation: clear to auscultation bilaterally Cardio Pulses: normal peripheral pulses GI Inspection: normal to inspection Other: gravid, josiah cephalic diffuse ezcema rash without superimposed infection Skin Other: diffuse ezcema of abdomen Neuro General: patient alert, patient awake and patient oriented x3 Motor: other (no hyper-reflexia noted ) Extrem General: normal to inspection Psych Mental Status: mental status grossly normal Judgment: fair Objective Labs 05/25/25 11:27 05/25/25 11:27 Labs: Laboratory Results - last 24 hr 05/25/25 11:27 WBC 12.1 H RBC 3.65 L Hgb 12.0 Hct 35.0 L MCV 96.0 MCH 32.9 MCHC 34.3 RDW 13.1 Plt Count 334 Neut % (Auto) 74.4 Lymph % (Auto) 17.0 L [place] % (Auto) 7.4 Eos % (Auto) 0.9 L Baso % (Auto) 0.3 Neut # (Auto) 9000 H Lymph # (Auto) 2100 [place] # (Auto) 900 Eos # (Auto) 100 Baso # (Auto) 0 Sodium 131 L Potassium 4.1 Chloride 104 Carbon Dioxide 20 L BUN 8 Creatinine 0.44 L Estimated GFR > 60 BUN/Creatinine Ratio 18.2 Glucose 83 Uric Acid 4.8 Calcium 9.1 Total Bilirubin 0.2 AST 28 ALT 21 Alkaline Phosphatase 80 Total Protein 7.3 Albumin 4.1 Globulin 3.2 Albumin/Globulin Ratio 1.3 U Random Total Protein 13 H Urine Creatinine 22.52 Protein/Creatinin Ratio 0.57 Evaluation Evaluation Baseline heart rate: 140 Variability: Moderate (6-25) monitor accelerations: Present Monitor Decelerations: Absent Uterine Contraction Intensity: Mild Category of Tracing: Reactive Status: Category l Diagnosis, Plan/Disposition Plan/Disposition Plan: 34yo at 36w6d presents for scheduled NST, CHTN on multiple antihypertensive agents, new proteinuria with increasing BP lability CHTN, new proteinuria Patient counseled that with persistent BP lability as well as change in proteinuria from baseline 0.11 earlier this week to 0.57 that recommendation at this time is to proceed with IOL at early term Patient declines IOL today with appropriate counseling. We discussed that while her current presentation is not diagnostic of pre-eclampsia with severe features, at this time she has ruled-in for presumed pre-eclampsia without severe features based on the marked and rapid elevation in her P/Cr ratio. We additionally discussed that even in the absence of the rapid increase in proteinuria IOL would be recommended in the setting of progressive labile BP on multiple anti-hypertensive agents at term Patient verbalized understanding of provider concerns and recommendations. In shared decision making model of care patient will be discharged to home today with planned interval re-evaluation tomorrow morning with repeat NST/PIH labs and BP monitoring. In quaker her BP remains labile with continued proteinuria patient states that she will be willing to consider IOL at that time as indicated Seizure d/o, subtherapeutic keppra level pt has not been able to reach her neurologist re: new dosing recommendations current keppra dose 750mg BID; pt instructed to take 1.5tabs (1125mg) at bedtime verbal signout given to on-call provider Dr. Doc Agrawal OB Disposition: home
== END 2025-05-25 13:18 | disposition home or self-care (01) ==
PROVIDERS: Admitting Provider Obstetrics & Gynecology; PCP Registered Nurse; Referring Provider Obstetrics & Gynecology; Visit Provider Obstetrics & Gynecology
DX: O11.3 Pre-existing hypertension with pre-eclampsia, third trimester (principal); O99.353 Diseases of the nervous system complicating pregnancy, third trimester; G40.909 Epilepsy, unspecified, not intractable, without status epilepticus; Z3A.36 36 weeks gestation of pregnancy
CPT/HCPCS: 36415; 59025; 80053; 84550; 85025; G0378; G0379